=== PATIENT | female | born 1990 | race Caucasian/White ===

== ENCOUNTER → 2018-10-06 12:33 | Outpatient (CLI) | payer SELFPAY ==
[2018-10-06 09:08] VITALS: BMI 28.4
[2018-10-06 16:07] LABS: Chlamydia Trachomatis by PCR Negative (Negative); Neisserai gonorrhoeae by PCR Negative (Negative); Probe Check PASS; Sample Adequacy Control PASS; Specimen Processing Control PASS
== END ==
PROVIDERS: Referring Provider Obstetrics & Gynecology; Visit Provider Obstetrics & Gynecology
DX: Z34.90 Encounter for supervision of normal pregnancy, unspecified, unspecified trimester (principal)
CPT/HCPCS: 87086; 87088; 87491; 87591

== ENCOUNTER → 2018-11-05 10:25 | Outpatient (CLI) | payer SELFPAY ==
[2018-11-05 09:29] VITALS: BMI 28.4
[2018-11-05 11:19] LABS: Absolute Lymphocyte Count 1.26 X10^3/ul (0.83-4.51); Absolute Neutrophil Count 5.9 X10^3/uL (2.0-7.7); Basophil# 0.02 X10^3/uL; Basophil% 0.3 % (0-1); Eosinophil# 0.04 X10^3/uL; Eosinophils% 0.5 % (0-5); Hematocrit 40.5 % (37-47); Hemoglobin 13.9 g/dl (12.0-15.0); Lymphocyte # 1.26 X10^3/ul (4.0); Lymphocyte % 16.2 % (19-41); Mean Corp Hgb Conc 34.3 g/gl (32-36); Mean Corpuscular Hgb 30.4 pg (27.0-32.0); Mean Corpuscular Volume 88.6 fL (81-99); Mean Platelet Vol. 9.1 fl (6.2-12.0); Monocyte# 0.55 X10^3/uL; Monocyte% 7.1 % (0-10); Neutrophil % 75.8 % (47-70); Platelet Count 338 K/mm3 (150-450); RBC Distribution Width CV 13.2 % (11.6-14.6); RBC Distribution Width SD 42.2 fl (35.1-43.9); Red Blood Count 4.57 M/mm3 (4.2-5.4); White Blood Count 7.8 K/mm3 (4.4-11.0)
[2018-11-05 11:21] LABS: POSITIVE COUNT NO; POSITIVE DIFFERENTIAL NO; POSITIVE MORPHOLOGY NO
[2018-11-05 12:30] LABS: HIV - WCH Non-Reactive (Nonreactive); Rubella IgG < 0.2 IU/mL
[2018-11-07 10:02] LABS: HEPATITIS B SURFACE AG Negative (Negative)
[2018-11-12 01:31] LABS: Rapid Plasmin Reagin (RPR) NONREACTIVE (NONREACTIVE)
== END ==
PROVIDERS: Referring Provider Obstetrics & Gynecology; Visit Provider Obstetrics & Gynecology
DX: Z34.81 Encounter for supervision of other normal pregnancy, first trimester (principal)
CPT/HCPCS: 36415; 85025; 86592; 86703; 86762; 86850; 86900; 87340

== ENCOUNTER → 2018-12-20 | Outpatient (CLI) | payer SELFPAY ==
[2018-11-05 09:29] VITALS: BMI 28.4
[2018-12-03 15:07] VITALS: BMI 29.8
--- NOTE | 2018-12-20 08:18 | US_ITS ---
STUDY: SECOND AND THIRD TRIMESTER OBSTETRICAL ULTRASOUND REASON FOR EXAM: Female, 28 years old. Routine survey. LMP: August 06, 2018. TECHNIQUE: Transabdominal TECHNICAL QUALITY: Adequate. PRIOR ULTRASOUND: None. FINDINGS: There is a single intrauterine fetus. The fetus is in a cephalic presentation. There is demonstrated cardiac activity with a heart rate of 144 bpm. There is a normal amniotic fluid volume. The largest amniotic fluid pocket measures 3.0 cm x 2.8 cm. The amniotic fluid index (JUAN RAMON) is within normal limits. The placenta is anterior in location and is not low lying. There are Grade 0 placental changes. The cervix measures 3.9 cm in length. The bilateral adnexal regions are normal. BIOMETRY: BPD: 4.58 cm: 19 weeks, 6 days HC: 17.62 cm: 1 weeks, 1 days AC: 13.91 cm: 19 weeks, 3 days FL: 3.29 cm: 20 weeks, 2 days CI: 75% FL/BPD: 72% FL/HC: FL/AC: 24% HC/AC: 1.27 age by current US: 20 weeks, 0 days. MARGE by current US: May 09, 2019. Estimated weight: 314 grams, +/- 46 grams, 68 %. Age by LMP: 19 weeks, 3 days. MARGE by LMP: May 13, 2019. ANATOMY: Gender: Male Cranium: Normal lateral ventricles. Normal choroid plexus. Normal cerebellum. Normal cisterna magna. Normal face, nose and lips. Chest: Normal 4-chamber heart. Abdomen/Pelvis: Normal diaphragm. Normal stomach. Normal abdominal wall. Normal cord insertion. Normal 3 vessel cord. Normal kidneys. Normal bladder. Spine: Normal cervical spine. Normal thoracic spine. Normal lumbar spine. Normal sacrum. Extremities: Normal bilateral upper extremities. There is evidence of a clubfoot. US/OB Anatomy Scan IMPRESSION: Single live intrauterine gestation with a mean gestational age of 20 weeks. There is evidence of a club foot. Electronically Signed: Jairo Artis, at 11:10 EDT , Service support ,
== END | disposition home or self-care (01) ==
PROVIDERS: Referring Provider Obstetrics & Gynecology; Visit Provider Obstetrics & Gynecology
DX: Z36.89 Encounter for other specified antenatal screening (principal)
CPT/HCPCS: 76805

== ENCOUNTER → 2019-02-01 | Outpatient (CLI) | payer SELFPAY ==
[2019-02-01 10:41] VITALS: BMI 29.8
[2019-02-01 11:18] LABS: Creatinine, Urine (random) < 13.00 mg/dL (NO RANGE EST.); Protein, Urine (Random) < 6.0 mg/dL (<11.9)
== END | disposition home or self-care (01) ==
LOC: LABSPEC 11:01
PROVIDERS: Referring Provider Obstetrics & Gynecology; Visit Provider Obstetrics & Gynecology
DX: O16.9 Unspecified maternal hypertension, unspecified trimester (principal); Z3A.00 Weeks of gestation of pregnancy not specified
CPT/HCPCS: 82570; 84156

== ENCOUNTER → 2019-02-22 | Outpatient (CLI) | payer SELFPAY ==
[2019-02-22 08:19] VITALS: BMI 29.8
[2019-02-22 09:39] LABS: Absolute Lymphocyte Count 1.24 X10^3/ul (0.83-4.51); Absolute Neutrophil Count 8.1 X10^3/uL (2.0-7.7); Basophil# 0.01 X10^3/uL; Basophil% 0.1 % (0-1); Eosinophil# 0.05 X10^3/uL; Eosinophils% 0.5 % (0-5); Hematocrit 38.1 % (37-47); Hemoglobin 12.9 g/dl (12.0-15.0); Lymphocyte # 1.24 X10^3/ul (4.0); Lymphocyte % 12.4 % (19-41); Mean Corp Hgb Conc 33.9 g/gl (32-36); Mean Corpuscular Hgb 30.4 pg (27.0-32.0); Mean Corpuscular Volume 89.6 fL (81-99); Mean Platelet Vol. 8.8 fl (6.2-12.0); Monocyte# 0.62 X10^3/uL; Monocyte% 6.2 % (0-10); Neutrophil # 8.08 X10^3/uL (2.7-7.7); Neutrophil % 80.6 % (47-70); Platelet Count 287 K/mm3 (150-450); RBC Distribution Width CV 13.3 % (11.6-14.6); RBC Distribution Width SD 43.4 fl (35.1-43.9); Red Blood Count 4.25 M/mm3 (4.2-5.4)
[2019-02-22 09:45] LABS: Glucose Challenge Gest 1H 50g 96 mg/dL (70-140)
[2019-02-22 09:47] LABS: POSITIVE COUNT NO; POSITIVE DIFFERENTIAL NO; POSITIVE MORPHOLOGY NO
== END | disposition home or self-care (01) ==
LOC: PAVLAB 08:59
PROVIDERS: Referring Provider Obstetrics & Gynecology; Visit Provider Obstetrics & Gynecology
DX: Z34.93 Encounter for supervision of normal pregnancy, unspecified, third trimester (principal)
CPT/HCPCS: 36415; 82950; 85025

== ENCOUNTER → 2019-04-04 | Outpatient (CLI) | payer SELFPAY ==
[2019-04-04 08:48] VITALS: BMI 29.8
[2019-04-04 09:36] LABS: Creatinine, Urine (random) < 13.00 mg/dL (NO RANGE EST.); Protein, Urine (Random) < 6.0 mg/dL (<11.9)
== END | disposition home or self-care (01) ==
LOC: LABSPEC 09:07
PROVIDERS: Referring Provider Obstetrics & Gynecology; Visit Provider Obstetrics & Gynecology
DX: O16.9 Unspecified maternal hypertension, unspecified trimester (principal); Z3A.00 Weeks of gestation of pregnancy not specified
CPT/HCPCS: 82570; 84156

== ENCOUNTER → 2019-04-20 | Outpatient (CLI) | payer SELFPAY ==
[2019-04-20 08:52] VITALS: BMI 29.8
== END | disposition home or self-care (01) ==
LOC: LAB 15:59
PROVIDERS: Referring Provider Obstetrics & Gynecology; Visit Provider Obstetrics & Gynecology
DX: Z34.93 Encounter for supervision of normal pregnancy, unspecified, third trimester (principal); Z3A.36 36 weeks gestation of pregnancy
CPT/HCPCS: 87081

== ENCOUNTER → 2019-05-04 | Outpatient (CLI) | payer SELFPAY ==
[2019-05-04 09:48] VITALS: BMI 29.8
--- NOTE | 2019-05-04 10:41 | US_ITS ---
STUDY: SECOND AND THIRD TRIMESTER OBSTETRICAL ULTRASOUND REASON FOR EXAM: Female, 28 years old. Small for dates. Check growth. History of club feet. LMP: August 06, 2018 per prior exam. TECHNIQUE: Transabdominal TECHNICAL QUALITY: Adequate. PRIOR ULTRASOUND: OB ultrasound December 20, 2018. FINDINGS: There is a single intrauterine fetus. The fetus is in a cephalic presentation. There is demonstrated cardiac activity with a heart rate of 153 bpm. There is a low normal amniotic fluid volume. The largest amniotic fluid pocket measures 3.5 cm. The amniotic fluid index (JUAN RAMON) is 7.3 cm. The placenta is anterior in location and is not low lying. There are Grade 3 placental changes. The cervix is obscured. The adnexal regions are not visualized. BIOMETRY: BPD: 9.5 cm: 38 weeks, 5 days HC: 35.0 cm: 40 weeks, 6 days AC: 34.1 cm: 38 weeks, 1 days FL: 7.5 cm: 38 weeks, 4 days CI: 80% FL/BPD: 80% FL/AC: 22% HC/AC: 1.03 age by current US: 39 weeks, 1 days. MARGE by current US: May 10, 2019. Estimated weight: 3518 grams, +/- 514 grams, 63 %. age by prior US: 39 weeks, 2 days. MARGE by prior US: May 09, 2019. Age by LMP: 38 weeks, 5 days. MARGE by LMP: May 13, 2019. Hyperflexion and internal rotation of the ankles consistent with bilateral clubfeet again noted. US/OB Limited With Biometrics IMPRESSION: 1. Single living intrauterine fetus in cephalic presentation showing expected interval growth since previous study. 2. Estimated weight is 3518 g. 3. Clubfoot deformity again suggested. 4. Low amniotic fluid volume with an index of 7.3 cm. The largest pocket is 3.5 cm, however. 5. Grade 3 anterior placenta is not low-lying. 6. The cervix is obscured. Electronically Signed: Mahin Cornelius MD at 12:30 EDT , Service support ,
[2019-05-04 15:04] LABS: Creatinine, Urine (random) < 13.00 mg/dL (NO RANGE EST.); Protein, Urine (Random) 12.3 mg/dL (<11.9)
== END | disposition home or self-care (01) ==
PROVIDERS: Referring Provider Obstetrics & Gynecology; Visit Provider Obstetrics & Gynecology
DX: O26.849 Uterine size-date discrepancy, unspecified trimester (principal); O16.3 Unspecified maternal hypertension, third trimester; Z3A.00 Weeks of gestation of pregnancy not specified
CPT/HCPCS: 76816; 82570; 84156

== ENCOUNTER 2019-05-07 17:55 | Inpatient (IN) | payer SELFPAY ==
[2018-10-06 09:08] VITALS: BMI 28.4
[2019-05-05 10:46] VITALS: BMI 29.8
[2019-05-07 17:15] VITALS: BMI 33.7
[2019-05-07] MEDS: Lactated Ringers 1,000 ML 50 ML IV (18:00)
[2019-05-07 18:25] LABS: Absolute Lymphocyte Count 1.48 X10^3/uL (0.83-4.51); Absolute Neutrophil Count 9.4 X10^3/uL (2.0-7.7); Basophil# 0.02 X10^3/uL; Basophil% 0.2 % (0-1); Eosinophil# 0.05 X10^3/uL; Eosinophils% 0.4 % (0-5); Hematocrit 43.3 % (37-47); Hemoglobin 14.7 g/dL (12.0-15.0); Lymphocyte # 1.48 X10^3/ul (4.0); Lymphocyte % 12.6 % (19-41); Mean Corp Hgb Conc 33.9 g/dL (32-36); Mean Corpuscular Hgb 30.6 pg (27.0-32.0); Mean Corpuscular Volume 90.2 fL (81-99); Mean Platelet Vol. 9.7 fl (6.2-12.0); Monocyte# 0.74 X10^3/uL; Monocyte% 6.3 % (0-10); NRBC Flagged by Analyzer 0 % (0-5); Neutrophil # 9.38 X10^3/uL (2.7-7.7); Neutrophil % 80.2 % (47-70); Platelet Count 297 K/mm3 (150-450); RBC Distribution Width CV 12.9 % (11.6-14.6); RBC Distribution Width SD 42.2 fl (35.1-43.9); White Blood Count 11.7 K/mm3 (4.4-11.0)
[2019-05-07 18:38] LABS: AST(SGOT) 18 U/L (15-37); Alanine Aminotransfer ALT/SGPT 22 U/L (13-56); Creatinine, Serum 0.66 mg/dL (0.55-1.02); EST Glomerular Filtration Rate 112 mL/min (>60); Est Glom Filt Rate - Afr Amer 136 mL/min (>60); Estimated Creatinine Clearance 115.21 ml/min; Uric Acid 5.7 mg/dL (2.6-6.0)
[2019-05-07 18:44] LABS: Partial Thromboplast Time 26.6 Seconds (24.1-36.2); Prothrombin Time (Protime)PT. 12.6 SECONDS (11.7-14.9)
[2019-05-07 18:54] VITALS: BP 167/103; PULSE 89; RESP 16; TEMP 36.5; O2SAT 100
[2019-05-07] MEDS: Magnesium Sulfate 4gm/100mL 4 GM/100 ML IV.SOLN. IV (18:54)
[2019-05-07 19:17] LABS: Protein, Urine (Random) 15.3 mg/dL (<11.9); Protein:Creat Ratio 147 mg/g CRE (0-200)
[2019-05-07 19:26] VITALS: BP 128/68; PULSE 91; RESP 16; TEMP 36.6; O2SAT 97
[2019-05-07] MEDS: Magnesium Sulfate 20 GM/500 ML BAG IV (19:26)
[2019-05-07 19:43] VITALS: BP 125/74; PULSE 94; RESP 16; O2SAT 98
[2019-05-07] MEDS: Labetalol 100 MG Tablet PO (20:01)
--- NOTE | 2019-05-07 20:01 | HP.PCM_ITS ---
- Problem List (1) Severe preeclampsia Status: Acute (2) Abnormality, congenital Status: Acute Comment: bilateral club feet noted. fu q4 weeks growth, s/p consult PEDS ORTHO 01/11/19 (3) Rubella non-immune status, antepartum Status: Acute Comment: MMR , avoidance in (4) Supervision of normal Status: Acute Qualifiers: Normal : normal first Trimester: third trimester Qualified Code(s): Z34.03 - Encounter for supervision of normal first , third trimester Comment: PRR MARGE 05/13/2019 Boy. - Adria (5) Status: Acute Qualifiers: Weeks of gestation: 38 weeks Qualified Code(s): Z3A.38 - 38 weeks gestation of Comment: Discused carrier and ntd declined. NIPT low risk. anatomy scan reviewed History Date of Admission: 05/07/19 Final MARGE: 05/13/19 Gestational age: 39 Weeks and 1 Days History of this : This is a 28 year-old, , at 39 weeks gestational age presents IAL. She has had elevated blood pressures upon presentation, has a history of white coat hypertension with all normal bps at home with daily monitoring. 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 Allergies No Known Allergies Allergy (Verified 05/07/19 17:38) Home Medications: Home Medications vitamin#30 30 mg iron-10 mg iron-folic acid 1 mg-omg3 capsule cap PO cap 09/15/18 blood pressure monitor kit See Dose Instructions .ROUTE .MEDSUPPLY #1 ea 12/03/18 Smoking Status: Never smoker Alcohol: None Number of Fetus(es): 1 NST - FHR Rate Baby A Baseline: 140 Variability:: Moderate Accelerations:: 15 x 15 Decelerations:: None NST Reactive:: Yes FHR Category:: Category I Uterine Activity:: q 3-4 History Past Pregnancies: Past Pregnancies Delivery Date Name GA/Weeks Outcome Route Weight Infant Gender Labor Length Anesthesia Delivery Location Provider FOB Labs: Mom's Problem List Problem Status Onset Code Severe preeclampsia Acute O14.10 Mom's Labs & Results 05/07/19 05/07/19 05/07/19 18:05 18:05 18:05 WBC 11.7 H RBC 4.80 Hgb 14.7 Hct 43.3 MCV 90.2 MCH 30.6 MCHC 33.9 RDW Std Deviation 42.2 RDW Coeff of Cy 12.9 Plt Count 297 MPV 9.7 Immature Gran % (Auto) 0.300 Neut % (Auto) 80.2 H Lymph % (Auto) 12.6 L [place] % (Auto) 6.3 Eos % (Auto) 0.4 Baso % (Auto) 0.2 Absolute Neuts (auto) 9.4 H Absolute Lymphs (auto) 1.48 Nucleated RBC % 0 PT 12.6 INR 1.0 APTT 26.6 Creatinine 0.66 Estim Creat Clear Calc 115.21 Est GFR (MDRD) Af Amer 136 Est GFR (MDRD) Non-Af 112 Uric Acid 5.7 AST 18 ALT 22 U Random Total Protein Urine Creatinine Protein/Creatinin Ratio Blood Type Antibody Screen 05/07/19 05/07/19 18:05 18:45 WBC RBC Hgb Hct MCV MCH MCHC RDW Std Deviation RDW Coeff of Cy Plt Count MPV Immature Gran % (Auto) Neut % (Auto) Lymph % (Auto) [place] % (Auto) Eos % (Auto) Baso % (Auto) Absolute Neuts (auto) Absolute Lymphs (auto) Nucleated RBC % PT INR APTT Creatinine Estim Creat Clear Calc Est GFR (MDRD) Af Amer Est GFR (MDRD) Non-Af Uric Acid AST ALT U Random Total Protein 15.3 H Urine Creatinine 104.00 Protein/Creatinin Ratio 147 Blood Type O POSITIVE Antibody Screen NEGATIVE Course Did the patient receive Yes care? Labs Blood Type: O RH: POSITIVE RPR/VDRL/Syphilis Nonreactive Rubella status Non-immune HbSAg Negative Date Done: 11/05/18 Chlamydia Negative Gonorrhea Negative HIV/AIDS Non-Reactive Group B Strep: Negative Current Obstetrical History Gestational Diabetes No Incompetent Cervix No Infertility No IUGR No Macrosomia No Hypertension/Pre-eclampsia Yes Placenta Previa/Abruption No PTL/PROM No Uterine anomaly No Oligohydramnios No Polyhydramnios No Multiple gestation No Past Medical History Asthma No Diabetes No Hypertension No Heart disease No Mitral valve prolapse No Neurologic/Seizure disorder/ No Migraines Kidney disease No Liver disease No Varicosities No Clotting disorders/Hx of DVT No Thyroid Dysfunction No Other medical diseases No Psychiatric disorders No Major trauma No Abnormal PAP smear No Sleep apnea No Mammogram in the last 2 years No Social History Marital Status: Alleged father Adria Huitron Hx Smoking No Smoking Status Never smoker Expected Infant Delivery Method: Spontaneous Vaginal Review of Systems Constitutional: Denies: Fever, Malaise Eyes: Denies: Blurred vision, Vision Change HEENT: Denies: Head Aches, Visual Changes Cardiovascular: Denies: Chest Pain, Palpitations Respiratory: Denies: Cough, Shortness of Breath, Wheezing Gastrointestinal: Denies: Abdominal Pain, Diarrhea, Nausea, Vomiting Genitourinary: Denies: Dysuria, Hematuria Musculoskeletal: Denies: Joint Pain, Muscle pain Skin: Denies: Lesions, Rash Neurological: Denies: Blurred vision, Focal weakness, Headaches Psychiatric: Denies: Anxiety, Depression Endocrine: Denies: Heat/ Cold Intolerance Hematologic/ Lymphatic: Denies: Easy Bruising, Easy Bleeding Physical Exam Vitals: Vital Signs Temp Pulse Resp BP Pulse Ox 97.9 F 91 16 128/68 H 97 05/07/19 19:26 05/07/19 19:26 05/07/19 19:26 05/07/19 19:26 05/07/19 19:26 General: Alert, Cooperative, No apparent distress HEENT: Atraumatic, Normocephalic. Negative for: Thyromegaly, Lymphadenopathy Cardiovascular: Regular rate Lungs: Normal air movement Abdomen: Soft, Non Tender, Gravid Neurological: Deep Tendon Reflexes 2+/4 and Symmetrical, Neuro grossly intact. Negative for: Clonus HEALTHC[employer] MANAGEMENT CONSULTANT: Normal external genitalia. Negative for: Vulvar lesions Estimated gestational size: Appropriate for gestational size Presentation: Cephalic Cervix Dilation (cm): 3 Assessment/Plan All Active Problems (Last Reviewed 05/04/19 @ 09:47 by Juanita Bach) Severe preeclampsia (Acute) White coat syndrome with high blood pressure but without hypertension (Acute) Abnormality, congenital (Acute) Rubella non-immune status, antepartum (Acute) Supervision of normal (Acute) (Acute) Elevated blood pressure affecting , antepartum (Resolved) This is a 28 year-old, at 39 weeks gestational age presents IAL. Patient presents IOL, plan management for , pitocin/AROM when able. Pain management: plans epidural. GBS negative. Management of any complications: Elevated blood pressures normal labs negative proteinuria patient given 1 dose of IV labetalol and started on ma gnesium. I have reviewed the [facility] and made any clinically relevant updates.
[2019-05-07 20:03] VITALS: BP 135/83; PULSE 81; RESP 16; O2SAT 98
[2019-05-07 20:30] VITALS: BP 143/87; PULSE 88; RESP 16; TEMP 36.6; O2SAT 97
[2019-05-07] MEDS: Lactated Ringers 500 ML 999 ML IV ×2 (20:46→21:40)
--- NOTE | 2019-05-07 22:11 | PN_ITS ---
Progress Note Patient taken to the back for heart rate deceleration. Patient had a 6- minute bradycardia down into the 50s. Patient's blood pressure had dropped during this time span and when she recovered in the back with a normal blood pressure baby's heart rate was reassuring and with a baseline of 140s with moderate variability. Patient's water was broken for clear fluid and scalp electrode was placed. Patient is 4/90/-1. Due to low blood pressures magnesium sulfate was turned off. Will restart magnesium if blood pressures begin to go back up.
[2019-05-07] MEDS: Lactated Ringers 1,000 ML 200 ML IV (22:37)
[2019-05-07] MEDS: fentaNYL-bupivacaine (epidural) 100 ML BAG EPIDURAL (23:03)
[2019-05-08] VITALS (7 sets, daily range): BP systolic 129–152; BP diastolic 85–93; PULSE 94–105; RESP 14–18; TEMP 36.8–37.1
[2019-05-08] MEDS: Lactated Ringers 1,000 ML 200 ML IV (03:10)
[2019-05-08] MEDS: fentaNYL-bupivacaine (epidural) 100 ML BAG EPIDURAL (03:55)
[2019-05-08] MEDS: Oxytocin 30 units/NS 500 ml 30 UNITS/500 ML IV.SOLN 334 UNITS IV (04:48)
--- NOTE | 2019-05-08 05:14 | PCM.OPRPT ---
Problem List (1) Severe preeclampsia Status: Acute (2) Abnormality, congenital Status: Acute Comment: bilateral club feet noted. fu q4 weeks growth, s/p consult PEDS ORTHO 01/11/19 (3) Rubella non-immune status, antepartum Status: Acute Comment: MMR , avoidance in (4) Supervision of normal Status: Acute Qualifiers: Normal : normal first Trimester: third trimester Qualified Code(s): Z34.03 - Encounter for supervision of normal first , third trimester Comment: PRR MARGE 05/13/2019 Boy. - Adria (5) Status: Acute Qualifiers: Weeks of gestation: 38 weeks Qualified Code(s): Z3A.38 - 38 weeks gestation of Comment: Discused carrier and ntd declined. NIPT low risk. anatomy scan reviewed Vaginal Delivery Maternal Presentation: Active Labor ial 39 weeks elevated bps Medical Reason for Induction: Gestational Hypertension Amniotic Membrane Rupture Type: Artificial Amniotic Fluid Description: Clear Final MARGE: 05/13/19 Gestational age: 39 Weeks and 2 Days Date of Procedure: 05/08/19 Pre-Operative Diagnosis: ial ghtn Post-Operative Diagnosis: same Surgery/ Procedure Performed: Spontaneous Vaginal Delivery, - - currettage Type of Anesthesia: Epidural Description of Procedure: Patient began pushing and delivered the head in the PAM presentation. The head was delivered atraumatically and a loose cord x1 was identified and easily reduced over the infant's head. The anterior and posterior shoulders delivered without complication followed by the rest of the and the infant was placed on the maternal abdomen. Delayed cord clamping was employed for approximately 60 seconds. Cord was clamped and cut and gentle traction was applied to the cord and the placenta delivered spontaneously immediately following it was noted to starting to tear into due to the thin small nature and thickness of the placenta with three-vessel cord. Retained membranes were noted to be present and therefore curettage was performed with a sharp curette making several passes to remove retained membranes which were removed without complication. Ultrasound confirmed no additional suspicion for retained membranes and there were no further complications. The perineum and vagina were inspected and noted to have a second-degree perineal laceration was repaired in the usual fashion with 3-0 Vicryl repeat.. EBL was 300 cc. Patient and infant tolerated delivery well. Presentation: PAM Placental Delivery Description: Spontaneous, Retained Placenta Disposition: [facility] Cord Vessel Description: 3 Vessels Cord Entanglement: Around neck x 1, loose Drain: Taylor to straight drain Estimated Blood Loss: 300 A gender: Male Episiotomy Description: None Laceration: Perineal Extension/lac, 2nd degree Medications given after delivery: IV Pitocin Complications: - - retained membranes Multi Select Codes - Urinary/Genital Urinary/Genital CPT Codes: 18130 Vaginal Delivery global pkg, Other Procedure See Report - [id number] curettage
[2019-05-08 07:14] LABS: ALB/GLOB Ratio 0.7 RATIO (0.9-2.4); AST(SGOT) 20 U/L (15-37); Alanine Aminotransfer ALT/SGPT 18 U/L (13-56); Albumin, Serum 2.4 g/dL (3.2-5.0); Alkaline Phosphatase 131 U/L (45-117); Anion Gap 8 (5-15); BUN 8 mg/dL (7-18); Calcium,Total 7.5 mg/dL (8.5-10.1); Chloride 109 mmol/L (98-107); Creatinine, Serum 0.57 mg/dL (0.55-1.02); EST Glomerular Filtration Rate 134 mL/min (>60); Est Glom Filt Rate - Afr Amer 162 mL/min (>60); Globulin 3.4 g/dL (2.2-4.2); Glucose 103 mg/dL (74-106); Potassium 3.8 mmol/L (3.5-5.1); Protein, Total 5.8 g/dL (6.4-8.2); Sodium Level 139 mmol/L (136-145)
[2019-05-08 07:23] LABS: Hematocrit 36.1 % (37-47); Hemoglobin 12.3 g/dL (12.0-15.0); Mean Corp Hgb Conc 34.1 g/dL (32-36); Mean Corpuscular Hgb 30.8 pg (27.0-32.0); Mean Corpuscular Volume 90.3 fL (81-99); Mean Platelet Vol. 9.5 fl (6.2-12.0); Platelet Count 254 K/mm3 (150-450); RBC Distribution Width CV 13.1 % (11.6-14.6); RBC Distribution Width SD 43.3 fl (35.1-43.9); White Blood Count 17.7 K/mm3 (4.4-11.0)
[2019-05-08] MEDS: Naproxen 250 MG Tablet 500 MG PO (09:59)
[2019-05-08] MEDS: Labetalol 100 MG Tablet PO (21:58)
[2019-05-09] VITALS (10 sets, daily range): BP systolic 121–163; BP diastolic 80–101; PULSE 88–107; RESP 16–18; TEMP 36.4–36.9; O2SAT 97–99
--- NOTE | 2019-05-09 08:23 | PCM.PN.OB ---
Patient Problems: Active and Suspected Problems (Last Reviewed 05/04/19 @ 09:47 by Juanita Bach) Severe preeclampsia (Acute) Subjective: doing well no complaints pain controlled no CP SOB N V ambulating well tolerating po lochia moderate, going well - Physical Exam General: Alert, Oriented x3 Vital Signs Temp Pulse Resp BP Pulse Ox 97.8 F 88 16 151/88 H 99 05/09/19 08:16 05/09/19 08:16 05/09/19 08:16 05/09/19 08:16 05/09/19 08:16 Oxygen Delivery Method Room Air Weight: 202 lb 9.6 oz Body Mass Index (BMI) 33.7 Intake and Output for Last 24 Hours 05/07/19 05/08/19 05/09/19 23:59 23:59 23:59 Intake Total 1519.18 / 1519.18 2436.67 / 2436.67 Output Total 300 / 300 3350 / 3350 Balance 1219.18 / 1219.18 -913.33 / -913.33 Medical Necessity - Tobacco Use Smoking Status: Never smoker Assessment/Plan All Active Problems (Last Reviewed 05/04/19 @ 09:47 by Juanita Bach) Severe preeclampsia (Acute) White coat syndrome with high blood pressure but without hypertension (Acute) Abnormality, congenital (Acute) Rubella non-immune status, antepartum (Acute) Supervision of normal (Acute) (Acute) Elevated blood pressure affecting , antepartum (Resolved)
--- NOTE | 2019-05-09 08:25 | DCINST_ITS ---
Discharge Diet: No Restrictions Discharge Activity: Return to Normal Activity, May not drive while taking narcotic pain medications., May Shower May resume sexual activity in: 4-6 weeks Call your doctor if your incision/area has: Continuous Slow Oozing, Sudden Increased Bleeding, Increased Pain/ Swelling, Increased Redness, Foul Smelling Discharge Additional Instructions: If you experience any of the following, contact your healthcare provider. * Bleeding that soaks a pad every hour for 2 hours * Fever 100.4 or higher * Unrelieved incision or abdominal pain * Swelling, redness, discharge or bleeding from your incision or episiotomy site * Your incision begins to separate * Problems urinating (including inability to urinate or burning while urinating). * Visual changes * Severe headache * Flu-like symptoms * Pain or redness in one of both of your breasts * Pain, warmth, tenderness or swelling in your legs, especially the calf area * Frequent nausea and vomiting * Symptoms of depression or anxiety If you experience any of the following, call 911 or go to the nearest Emergency Room. * Chest pain * Problems breathing * Seizure activity * Partial or complete paralysis of a body part, slurred speech, weakness or drooping of the face, or a sudden inability to walk or hold your balance Allergies/Adverse Reactions: Allergies No Known Allergies Allergy (Verified 05/07/19 17:38) Medications to take at Discharge vitamin#30 30 mg iron-10 mg iron-folic acid 1 mg-omg3 capsule cap PO cap 09/15/18 blood pressure monitor kit See Dose Instructions .ROUTE .MEDSUPPLY #1 ea 12/03/18 Labetalol [Trandate (Beta Reid)] 100 mg PO BID #60 tab 05/09/19 Naproxen [Naprosyn] 250 - 500 mg PO Q8H PRN PRN #30 tab 05/09/19 The following prescriptions were given: Naproxen [Naprosyn] 250 - 500 mg PO Q8H PRN PRN #30 tab PRN Reason: MILD PAIN [facility]: [id number] Labetalol [Trandate (Beta Reid)] 100 mg PO BID #60 tab Transmission Status: [id number] Please Follow Up With: Coral Church MD - [phone] When: Call to make an appointment with your doctor in 6 weeks. If you had elevated Blood pressure or 4th degree laceration you will need to be seen in 2 weeks. Primary Care Physician: Care Physician,No Primary [Primary Care Provider] - Test Results: Test results from this visit will be discussed in further detail at your follow- up appointment, if applicable.
[2019-05-09] MEDS: Labetalol 100 MG Tablet PO ×2 (10:02→20:45)
[2019-05-10 03:35] VITALS: BP 131/90; PULSE 86; RESP 17; TEMP 36.7; O2SAT 98
[2019-05-10 07:54] VITALS: BP 136/74; PULSE 79; RESP 18; TEMP 36.6; O2SAT 97
--- NOTE | 2019-05-10 08:59 | PCM.PN.OB ---
Patient Problems: Active and Suspected Problems (Last Reviewed 05/04/19 @ 09:47 by Juanita Bach) Severe preeclampsia (Acute) Subjective: doing well no complaints pain controlled. no CP SOB N V. No headache, vision changes. Borderline elevated BP in night. ambulating well tolerating po lochia moderate, going well - Physical Exam General: Oriented x3 Abdomen: Soft, Non Tender, Non-Distended, - - FF below U Vital Signs Temp Pulse Resp BP Pulse Ox 98 F 79 18 136/74 H 97 05/10/19 07:54 05/10/19 07:54 05/10/19 07:54 05/10/19 07:54 05/10/19 07:54 Oxygen Delivery Method Room Air Weight: 202 lb 9.6 oz Body Mass Index (BMI) 33.7 Intake and Output for Last 24 Hours 05/08/19 05/09/19 05/10/19 23:59 23:59 23:59 Intake Total 2436.67 / 2436.67 Output Total 3350 / 3350 Balance -913.33 / -913.33 Medical Necessity - Tobacco Use Smoking Status: Never smoker Assessment/Plan All Active Problems (Last Reviewed 05/04/19 @ 09:47 by Juanita Bach) Severe preeclampsia (Acute) White coat syndrome with high blood pressure but without hypertension (Acute) Abnormality, congenital (Acute) Rubella non-immune status, antepartum (Acute) Supervision of normal (Acute) (Acute) Elevated blood pressure affecting , antepartum (Resolved) s/p PPD # 2 1. routine post delivery care 2. breast feeding- support given 3. rh positive 4. rubella immune 5. Most recent BP WNL. Will monitor at home and call if >140/90 X 2 readings 6. Home today 7. BP check in office 1 week and also 6 wk pp visit
[2019-05-10 10:02] VITALS: BP 147/82; PULSE 92
[2019-05-10] MEDS: Labetalol 100 MG Tablet PO (10:04)
--- NOTE | 2019-05-10 10:26 | NURSING ---
Patient refused MMR vaccine, education given.
== END 2019-05-10 10:45 | disposition home or self-care (01) | DRG 807 ==
LOC: WPOUT 17:58
PROVIDERS: Admitting Provider Obstetrics & Gynecology; Referring Provider Obstetrics & Gynecology; Visit Provider Obstetrics & Gynecology
DX: O14.14 Severe pre-eclampsia complicating childbirth (principal); Z37.0 Single live birth; O76 Abnormality in fetal heart rate and rhythm complicating labor and delivery; O77.1 Fetal stress in labor or delivery due to drug administration; O69.81X0 Labor and delivery complicated by cord around neck, without compression, not applicable or unspecified; O70.1 Second degree perineal laceration during delivery; O72.2 Delayed and secondary postpartum hemorrhage; Z3A.39 39 weeks gestation of pregnancy
CPT/HCPCS: 59050; 76815; 80053; 82565; 82570; 84156; 84450; 84460; 84550; 85025; 85027; 85610; 85730; 86850; 86900; 86901; 99218; J7120; G0378

== ENCOUNTER → 2019-06-20 | Outpatient (CLI) | payer SELFPAY ==
[2019-06-20 14:54] VITALS: BMI 33.7
[2019-06-23 16:56] LABS: HPV Reflexed? NOT INDICATED
== END | disposition home or self-care (01) ==
PROVIDERS: Referring Provider Obstetrics & Gynecology; Visit Provider Obstetrics & Gynecology
DX: Z12.4 Encounter for screening for malignant neoplasm of cervix (principal)
CPT/HCPCS: 88175; G0145

== ENCOUNTER → 2021-07-01 11:26 | Outpatient (CLI) | payer SELFPAY ==
[2021-07-01 12:08] LABS: T4 Free Direct 1.05 ng/dL (0.76-1.46); Thyroid Stim Hormone (TSH) 1.86 uIU/mL (0.358-3.74)
== END ==
PROVIDERS: Referring Provider Obstetrics & Gynecology; Visit Provider Obstetrics & Gynecology
DX: E01.0 Iodine-deficiency related diffuse (endemic) goiter (principal)
CPT/HCPCS: 36415; 84439; 84443

== ENCOUNTER → 2021-07-11 09:39 | Outpatient (CLI) | payer SELFPAY ==
--- NOTE | 2021-07-11 09:43 | US_ITS ---
STUDY: THYROID ULTRASOUND REASON FOR EXAM: Female, 31 years old. Thyromegaly. TECHNIQUE: Ultrasound evaluation of the thyroid was performed with real-time and static kirby-scale imaging. COMPARISON: None. FINDINGS: RIGHT LOBE: The right lobe of the thyroid gland measures 4.9 cm x 1.4 cm x 1.3 cm. There is a heterogeneous echotexture. There is a 1 cm x 1 cm x 0.9 cm hypoechoic solid nodule in the anterior aspect of the midpole of the right lobe. Intranodular vascularity is seen. LEFT LOBE: The left lobe of the thyroid gland measures 4.8 cm x 1.6 cm x 1.1 cm. There is a heterogeneous echotexture. 31.3 cm x 1.1 cm x 1.1 cm echogenic nodule in the lower pole of the left lobe. Intranodular vascularity is seen. ISTHMUS: The isthmus measures 2 mm. The regional lymph nodes are normal. US/Thyroid IMPRESSION: Heterogeneous appearance of both lobes of the thyroid gland. 1.3 cm x 1.1 cm x 1.1 cm echogenic nodule in the lower pole of the left lobe. 1 cm x 1 cm x 0.9 cm nodule in the anterior midportion of the right lobe. Correlation with nuclear medicine thyroid scan and uptake is recommended. Electronically Signed: Jairo Artis MD at 15:54 EDT , Service support ,
== END ==
PROVIDERS: PCP Family Medicine; Referring Provider Obstetrics & Gynecology; Visit Provider Obstetrics & Gynecology
DX: E01.0 Iodine-deficiency related diffuse (endemic) goiter (principal)
CPT/HCPCS: 76536

== ENCOUNTER 2021-10-24 14:53 | Outpatient (CLI) | payer SELFPAY ==
[2021-10-24 15:17] LABS: Absolute Lymphocyte Count 1.39 X10^3/uL (0.83-4.51); Absolute Neutrophil Count 9.2 X10^3/uL (2.0-7.7); Eosinophil# 0.04 X10^3/uL; Eosinophils% 0.4 % (0-5); Hematocrit 38.2 % (37-47); Lymphocyte # 1.39 X10^3/ul (0.83-4.51); Lymphocyte % 12.4 % (19-41); Mean Corpuscular Hgb 29.8 pg (27.0-32.0); Mean Corpuscular Volume 87.6 fL (81-99); Mean Platelet Vol. 8.7 fl (6.2-12.0); Monocyte# 0.54 X10^3/uL; Monocyte% 4.8 % (0-10); NRBC Flagged by Analyzer 0 % (0-5); Neutrophil # 9.15 X10^3/uL (2.7-7.7); Platelet Count 359 K/mm3 (150-450); RBC Distribution Width CV 13.1 % (11.6-14.6); RBC Distribution Width SD 42.5 fl (35.1-43.9); Red Blood Count 4.36 M/mm3 (4.2-5.4); White Blood Count 11.2 K/mm3 (4.4-11.0)
[2021-10-24 16:05] LABS: Protein, Urine (Random) 8.3 mg/dL (<11.9); Protein:Creat Ratio 66 mg/g CRE (0-200)
[2021-10-24 16:11] LABS: ALB/GLOB Ratio 0.9 RATIO (0.9-2.4); AST(SGOT) 14 U/L (15-37); Alanine Aminotransfer ALT/SGPT 21 U/L (13-56); Albumin, Serum 3.5 g/dL (3.2-5.0); Alkaline Phosphatase 73 U/L (45-117); Anion Gap 5 (5-15); BUN 10 mg/dL (7-18); BUN/Creat Ratio 18.2 RATIO (10-20); Calcium,Total 8.5 mg/dL (8.5-10.1); Chloride 105 mmol/L (98-107); Creatinine, Serum 0.55 mg/dL (0.55-1.02); EST Glomerular Filtration Rate 138 mL/min (>60); Est Glom Filt Rate - Afr Amer 167 mL/min (>60); Globulin 3.9 g/dL (2.2-4.2); Glucose 131 mg/dL (74-106); Glucose Challenge Gest 1H 50g 131 mg/dL (70-140); Potassium 3.2 mmol/L (3.5-5.1); Protein, Total 7.4 g/dL (6.4-8.2); Sodium Level 135 mmol/L (136-145)
[2021-10-25 08:10] LABS: Rubella IgG Non-Reactive (Nonreactive)
[2021-11-01 11:56] LABS: HPV APTIMA, High Risk Negative (Negative)
== END 2021-10-24 23:59 | disposition home or self-care (01) ==
LOC: PAVLAB 14:53
PROVIDERS: PCP Family Medicine; Referring Provider Obstetrics & Gynecology; Visit Provider Obstetrics & Gynecology
DX: O09.90 Supervision of high risk pregnancy, unspecified, unspecified trimester (principal); Z3A.00 Weeks of gestation of pregnancy not specified
CPT/HCPCS: 36415; 80053; 82570; 82950; 84156; 85025; 86762; 86850; 86900; 86901; 87086; 87088; 87624; 88175; G0145

== ENCOUNTER 2021-11-07 09:53 | Outpatient (CLI) | payer SELFPAY ==
[2021-11-07 11:07] LABS: NATERA MAILED SPECIMEN
[2021-11-07 11:15] LABS: Anion Gap 4 (5-15); BUN 10 mg/dL (7-18); BUN/Creat Ratio 21.2 RATIO (10-20); Calcium,Total 8.9 mg/dL (8.5-10.1); Chloride 106 mmol/L (98-107); Creatinine, Serum 0.47 mg/dL (0.55-1.02); EST Glomerular Filtration Rate 164 mL/min (>60); Est Glom Filt Rate - Afr Amer 199 mL/min (>60); Glucose 94 mg/dL (74-106); Potassium 3.8 mmol/L (3.5-5.1); Sodium Level 136 mmol/L (136-145)
== END 2021-11-07 23:59 | disposition home or self-care (01) ==
LOC: PAVLAB 09:54
PROVIDERS: PCP Family Medicine; Referring Provider Obstetrics & Gynecology; Visit Provider Obstetrics & Gynecology
DX: E87.6 Hypokalemia (principal)
CPT/HCPCS: 36415; 80048

== ENCOUNTER 2021-11-22 14:25 | Outpatient (CLI) | payer SELFPAY ==
[2021-11-22 15:36] LABS: NATERA MAILED SPECIMEN
== END 2021-11-22 23:59 | disposition home or self-care (01) ==
LOC: LAB 14:26
PROVIDERS: PCP Family Medicine; Visit Provider Obstetrics & Gynecology
DX: Z34.81 Encounter for supervision of other normal pregnancy, first trimester (principal)
CPT/HCPCS: 36415

== ENCOUNTER → 2022-01-17 | Outpatient (CLI) | payer SELFPAY ==
[2022-01-17 13:56] LABS: Protein, Urine (Random) < 6.0 mg/dL (<11.9)
== END | disposition home or self-care (01) ==
LOC: LABSPEC 13:26
PROVIDERS: PCP Family Medicine; Visit Provider Obstetrics & Gynecology
DX: I10 Essential (primary) hypertension (principal)
CPT/HCPCS: 82570; 84156

== ENCOUNTER → 2022-03-14 | Outpatient (CLI) | payer MEDICAID, SELFPAY ==
[2022-03-14 17:08] LABS: Absolute Lymphocyte Count 1.13 X10^3/uL (0.83-4.51); Absolute Neutrophil Count 6.9 X10^3/uL (2.0-7.7); Basophil# 0.01 X10^3/uL; Basophil% 0.1 % (0-1); Eosinophil# 0.04 X10^3/uL; Eosinophils% 0.5 % (0-5); Hematocrit 34.4 % (37-47); Hemoglobin 12.1 g/dL (12.0-15.0); Lymphocyte # 1.13 X10^3/ul (0.83-4.51); Lymphocyte % 13.4 % (19-41); Mean Corp Hgb Conc 35.2 g/dL (32-36); Mean Corpuscular Hgb 30.6 pg (27.0-32.0); Mean Corpuscular Volume 86.9 fL (81-99); Mean Platelet Vol. 9.1 fl (6.2-12.0); Monocyte# 0.38 X10^3/uL; Monocyte% 4.5 % (0-10); NRBC Flagged by Analyzer 0 % (0-5); Neutrophil # 6.86 X10^3/uL (2.7-7.7); Neutrophil % 81.1 % (47-70); Platelet Count 309 K/mm3 (150-450); RBC Distribution Width CV 13.4 % (11.6-14.6); RBC Distribution Width SD 42.8 fl (35.1-43.9); Red Blood Count 3.96 M/mm3 (4.2-5.4); White Blood Count 8.5 K/mm3 (4.4-11.0)
[2022-03-14 17:47] LABS: Glucose Challenge Gest 1H 50g 134 mg/dL (70-140)
== END | disposition home or self-care (01) ==
PROVIDERS: Obstetrics & Gynecology; PCP Family Medicine; Referring Provider Obstetrics & Gynecology; Visit Provider Obstetrics & Gynecology
DX: O09.90 Supervision of high risk pregnancy, unspecified, unspecified trimester (principal); Z3A.00 Weeks of gestation of pregnancy not specified
CPT/HCPCS: 36415; 82950; 85025

== ENCOUNTER → 2022-04-25 | Outpatient (CLI) | payer MEDICAID, SELFPAY ==
[2022-04-25 14:32] LABS: Hematocrit 38.5 % (37-47); Hemoglobin 13.4 g/dL (12.0-15.0); Mean Corp Hgb Conc 34.8 g/dL (32-36); Mean Corpuscular Hgb 30.9 pg (27.0-32.0); Mean Corpuscular Volume 88.9 fL (81-99); Mean Platelet Vol. 9.5 fl (6.2-12.0); Platelet Count 253 K/mm3 (150-450); RBC Distribution Width CV 13.4 % (11.6-14.6); RBC Distribution Width SD 43.9 fl (35.1-43.9); Red Blood Count 4.33 M/mm3 (4.2-5.4); White Blood Count 7.9 K/mm3 (4.4-11.0)
[2022-04-25 14:41] LABS: Protein, Urine (Random) < 6.0 mg/dL (<11.9)
[2022-04-25 15:02] LABS: ALB/GLOB Ratio 0.7 RATIO (0.9-2.4); AST(SGOT) 19 U/L (15-37); Alanine Aminotransfer ALT/SGPT 19 U/L (13-56); Albumin, Serum 2.7 g/dL (3.2-5.0); Alkaline Phosphatase 141 U/L (45-117); Anion Gap 7 (5-15); BUN 9 mg/dL (7-18); BUN/Creat Ratio 16.5 RATIO (10-20); Calcium,Total 8.4 mg/dL (8.5-10.1); Chloride 108 mmol/L (98-107); Creatinine, Serum 0.54 mg/dL (0.55-1.02); EST Glomerular Filtration Rate 139 mL/min (>60); Est Glom Filt Rate - Afr Amer 168 mL/min (>60); Globulin 3.8 g/dL (2.2-4.2); Glucose 79 mg/dL (74-106); Potassium 3.6 mmol/L (3.5-5.1); Protein, Total 6.5 g/dL (6.4-8.2); Sodium Level 138 mmol/L (136-145)
== END | disposition home or self-care (01) ==
PROVIDERS: PCP Family Medicine; Referring Provider Obstetrics & Gynecology; Visit Provider Obstetrics & Gynecology
DX: O10.919 Unspecified pre-existing hypertension complicating pregnancy, unspecified trimester (principal)
CPT/HCPCS: 36415; 80053; 82570; 84156; 85027

== ENCOUNTER 2022-05-01 10:25 | Inpatient (IN) | payer MEDICAID, SELFPAY ==
[2022-05-01] VITALS (20 sets, daily range): BP systolic 141–178; BP diastolic 83–98; PULSE 71–96; TEMP 36.5–37; O2SAT 97–99; BMI 38.1
[2022-05-01 11:51] LABS: Absolute Lymphocyte Count 1.33 X10^3/uL (0.83-4.51); Absolute Neutrophil Count 6.4 X10^3/uL (2.0-7.7); Basophil# 0.02 X10^3/uL; Basophil% 0.2 % (0-1); Eosinophil# 0.02 X10^3/uL; Eosinophils% 0.2 % (0-5); Hemoglobin 13.5 g/dL (12.0-15.0); Lymphocyte # 1.33 X10^3/ul (0.83-4.51); Lymphocyte % 16.2 % (19-41); Mean Corp Hgb Conc 34.6 g/dL (32-36); Mean Corpuscular Hgb 30.7 pg (27.0-32.0); Mean Corpuscular Volume 88.6 fL (81-99); Mean Platelet Vol. 9.9 fl (6.2-12.0); Monocyte# 0.43 X10^3/uL; Monocyte% 5.2 % (0-10); NRBC Flagged by Analyzer 0 % (0-5); Neutrophil # 6.39 X10^3/uL (2.7-7.7); Platelet Count 243 K/mm3 (150-450); RBC Distribution Width CV 13.4 % (11.6-14.6); RBC Distribution Width SD 43.9 fl (35.1-43.9); White Blood Count 8.2 K/mm3 (4.4-11.0)
[2022-05-01] MEDS: Betamethasone/Betamethasone 30 MG/5 ML Vial 12 MG IM (12:07)
[2022-05-01 12:34] LABS: AST(SGOT) 18 U/L (15-37); Alanine Aminotransfer ALT/SGPT 16 U/L (13-56); Creatinine, Serum 0.48 mg/dL (0.55-1.02); EST Glomerular Filtration Rate 160 mL/min (>60); Est Glom Filt Rate - Afr Amer 194 mL/min (>60); Estimated Creatinine Clearance 154.21 ml/min; Uric Acid 6.1 mg/dL (2.6-6.0)
[2022-05-01 12:45] LABS: Protein, Urine (Random) < 6.0 mg/dL (<11.9)
[2022-05-01 15:46] LABS: Amphetamine Urine VISTA NEGATIVE (<1000 ng/mL); Barbiturate Urine VISTA NEGATIVE (< 200 ng/mL); Benzodiazepine Urine VISTA NEGATIVE (< 200 ng/mL); Cocaine Urine VISTA NEGATIVE (< 300 ng/mL); Ecstacy Urine VISTA NEGATIVE (< 500 ng/mL); Methadone Urine VISTA NEGATIVE (< 300 ng/mL); PCP Urine VISTA NEGATIVE (< 25 ng/mL); THC Urine VISTA NEGATIVE (< 50 ng/mL); Vista UDS pH Range 5
[2022-05-01 15:47] LABS: Syphilis Antibodies Non-reactive
[2022-05-01 16:02] LABS: HIV - WCH Non-Reactive (Nonreactive); Hepatitis B Surface Antigen Non-Reactive (Nonreactive); Hepatitis C Antibody Non-Reactive (Nonreactive)
[2022-05-01 16:39] LABS: Group B Strep DNA By PCR Negative (Negative); Internal Control PASS; Probe Check PASS; Specimen Processing Control PASS
--- NOTE | 2022-05-01 17:14 | HP.PCM.OB_ITS ---
HPI - General General Date of Admission: 05/01/22 HPI Narrative TITA PIERRE, is a 31 F who presents with IUGR baby A and gestational hypertension. Blood pressures are in the mildly elevated range to 140s to 150s over 90s to low 100s. Patient denies any headache or blurry vision. Maternal Data Information MARGE Calculator Estimated Delivery Date Method Current WG Current Estimate 06/02/22 LMP (Certain) 35w 4d # 2 PFSH PFSH Medical History (Updated 05/02/22 @ 20:[address] Coral Church MD) Dairy product intolerance Dichorionic diamniotic twin gestation (~11/07/21) Low blood potassium Pre-eclampsia Superficial varicosities Thyromegaly White coat syndrome with high blood pressure without hypertension Home Medications prenat.vits,iraj,[id number] 1 tab PO DAILY 10/15/21 [History Last Taken 04/30/22 18:00] nifedipine 30 mg tablet,extended release 24 hr (Procardia XL) 30 mg PO DAILY blood pressure 05/01/22 [History Last Taken 04/30/22 18:00] Allergy/AdvReac Type Severity Reaction Status Date / Time No Known Allergies Allergy Verified 05/01/22 09:02 Family History Father Hypertension CVA (cerebral vascular accident) Mother Uterine cancer Bennett syndrome Social History adopted: No household members: spouse and children housing: house number of children: 1 current occupational status: employed current occupation: [employer] current occupational exposures/hazards: No pets and animals: No history of recent travel: No Smoking Status: Never smoker alcohol intake: never substance use type: does not use caffeine: No what type of physical activity do you participate in: none seatbelt use: always do you feel safe at home: Yes additional social history: [place] History 2 Elective abortions Hx Para 1 Spontaneous abortions Hx # Term Pregnancies Ectopic pregnancies Hx # Pregnancies Multiple births # of living children 1 Past Pregnancies Del. Date Name GA/Weeks Outcome Route Bth Weight Infant Gen Labor Lgth Anesthesia Del Locatn Provider FOB 05/08/19 Mack 39 live - full term Male epidur al [facility] Delivery Date: 05/08/19 Last Updated by: Jenna Giacomo retained membranes; 2 degree laceration; severe GHTN; bilateral clubbed feet Visit Details Expected Delivery Route/Plan if vtx vtx Labor Preferences- CB/BF classes: [] labor support person: [] labor intervention preferences: [] pain management options preferred: [] cut cord/dad catch: [] : [] PP control planned: [] discussed possible routes of delivery and associated risks: [] special requests: [] Plans Covid status: declined Flu vaccine: declined Tdap vaccine: declined Rhogam: na LARC form signed: [] movement and labor precautions reviewed. Problem list reviewed and updated with the most current plan of care details and appropriate orders placed. Relevant counseling for the gestational age provided. Continue routine care and follow up unless otherwise noted in visit notes/problem list details OB Flowsheet Initial Weight: 209 lb Date -?-?-?-?-?-?-?-?-?-?-?-?- EGA Weight BP Urine Prot -?-?-?-?-?-?-?-?-?-?-?-?- Glucose FHR FuHt Pres Dilation -?-?-?-?-?-?-?-?-?-?-?-?- Effaced St Visit Note 10/24/21 -?-?-?-?-?-?-?-?-?-?-?-?- 8w 3d 209 lb (+0 oz) 135/86 -?-?-?-?-?-?-?-?-?-?-?-?- A 170 -?-?-?-?-?-?-?-?-?-?-?-?- B 165 A -?-?-?-?-?-?-?-?-?-?-?-?- B -?-?-?-?-?-?-?-?-?-?-?-?- A -?-?-?-?-?-?-?-?-?-?-?-?- B A SM- CRL cons wit h LMP two GS sac seen with thick dividing membrane -?-?-?-?-?-?-?-?-?-?-?-?- B 03/03/22 -?-?-?-?-?-?-?-?-?-?-?-?- 10w 3d 149/94 Negative -?-?-?-?-?-?-?-?-?-?-?-?- Negative A 160 -?-?-?-?-?-?-?-?-?-?-?-?- B 163 A -?-?-?-?-?-?-?-?-?-?-?-?- B -?-?-?-?-?-?-?-?-?-?-?-?- A -?-?-?-?-?-?-?-?-?-?-?-?- B A JV- bp higher to day, pt states it is white coat syndrome. will need to start baby asa. rto in 2 weeks with home bp cuff. if elevated on 2 separate visits will be considered chronic htn and may or may not need medication -?-?-?-?-?-?-?-?-?-?-?-?- B 11/22/21 -?-?-?-?-?-?-?-?-?-?-?-?- 12w 4d 209 lb (+0 oz) 209 lb (+0 oz) 139/88 Negative -?-?-?-?-?-?-?-?-?-?-?-?- Negative A 153 -?-?-?-?-?-?-?-?-?-?-?-?- B 150 A -?-?-?-?-?-?-?-?-?-?-?-?- B -?-?-?-?-?-?--?-?-?-?-?-?- A -?-?-?-?-?-?-?-?-?-?-?-?- B A SM- repeat bps n l -?-?-?-?-?-?-?-?-?-?-?-?- B 12/16/21 -?-?-?-?-?-?-?-?-?-?-?-?- 16w 0d 214 lb (+5 lb) 124/73 Negative -?-?-?-?-?-?-?-?-?-?-?-?- Negative A 153 -?-?-?-?-?-?-?-?-?-?-?-?- B 150 A -?-?-?-?-?-?-?-?-?-?-?-?- B -?-?-?-?-?-?-?-?-?-?-?-?- A -?-?-?-?-?-?-?-?-?-?-?-?- B A JV_ no complaint s today. has anatomy scan scheduled with MFM . 2 panorama tests done both inconclusive. -?-?-?-?-?-?-?-?-?-?-?-?- B 01/17/22 -?-?-?-?-?-?-?-?-?-?-?-?- 20w 4d 218 lb 6 oz (+9 lb 6 oz) Negative -?-?-?-?-?-?-?--?-?-?-?-?- Negative A 139 -?-?-?-?-?-?-?-?-?-?-?-?- B 160 A Cephalic -?-?-?-?-?-?-?-?-?-?-?-?- B Transverse -?-?-?-?-?-?-?-?-?-?-?-?- A -?-?-?-?-?-?-?-?-?-?-?-?- B A JV- no lof, vagi nal bleeding, or cramping. pt is hoping for vag delivery but open to section as needed. has q 4 week scans scheduled with mfm. -?-?-?-?-?-?-?-?-?-?-?-?- B 02/14/22 -?-?-?-?-?-?-?-?-?-?-?-?- 24w 4d 220 lb (+11 lb) 133/78 Negative -?-?-?-?-?-?-?-?-?-?-?-?- Negative A 125 -?-?-?-?-?-?-?-?-?-?-?-?- B 144 A Cephalic -?-?-?-?-?-?-?-?-?-?-?-?- B Transverse -?-?-?-?-?-?-?-?-?-?-?-?- A -?-?-?-?-?-?--?-?-?-?-?-?- B A JV- + FM, no com plaints. rpt growth scan last visit was normal. -?-?-?-?-?-?-?-?-?-?-?-?- B 03/14/22 -?-?-?-?-?-?-?-?-?-?-?-?- 28w 4d 225 lb (+16 lb) 170/80 142/78 Negative -?-?-?-?-?-?-?-?-?-?-?-?- Negative A 140 -?-?-?-?-?-?-?-?-?-?-?-?- B 140 A Cephalic -?-?-?-?-?-?-?-?-?-?-?-?- B [place]ree[place] -?-?-?-?-?-?-?-?-?-?-?-?- A -?-?-?-?-?-?-?-?-?-?-?-?- B A SM- n ovb lof go od fm no regular ctx bps nl at home -?-?-?--?-?-?-?-?-?-?-?-?- B 03/21/22 -?-?-?-?-?-?-?-?-?-?-?-?- 29w 4d 226 lb (+17 lb) 138/83 -?-?-?-?-?-?-?-?-?-?-?-?- A 145 -?-?-?-?-?-?-?-?-?-?-?-?- B 145 A -?-?-?-?-?-?-?-?-?-?-?-?- B -?-?-?-?-?-?-?-?-?-?-?-?- A -?-?-?-?-?-?-?-?-?-?-?-?- B A no vb lof good fm nor egualr ctx -?-?-?-?-?-?-?-?-?-?-?-?- B 03/28/22 -?-?-?-?-?-?-?-?-?-?-?-?- 30w 4d 226 lb (+17 lb) 133/81 Negative -?-?-?-?-?-?--?-?-?-?-?-?- Negative A 145 -?-?-?-?-?-?-?-?-?-?-?-?- B 155 A -?-?-?-?-?-?-?-?-?-?-?-?- B -?-?-?-?-?-?-?-?-?-?-?-?- A -?-?-?-?--?-?-?-?-?-?-?-?- B A SM- no vb lof go od fm no reuglar ctx -?-?-?-?-?-?-?-?-?-?-?-?- B 04/04/22 -?-?-?-?-?-?-?-?-?-?-?-?- 31w 4d 227 lb 4 oz (+18 lb 4 oz) 136/70 Negative -?-?-?-?-?-?-?-?-?-?-?-?- Negative A 153 -?-?-?-?-?-?-?-?-?-?-?-?- B 150 A Cephalic -?-?-?-?-?-?-?-?-?-?-?-?- B Breech -?-?-?-?-?-?-?-?-?-?-?-?- A -?-?-?-?-?-?-?-?-?-?-?-?- B A SM- no vb lof go od fm no regular ctx -?-?-?-?-?-?-?-?-?-?-?-?- B 04/11/22 -?-?-?-?-?-?-?-?-?-?-?-?- 32w 4d 227 lb (+18 lb) 127/84 Negative -?-?-?-?-?-?-?-?-?-?-?-?- Negative A 144 -?-?-?-?-?-?-?-?-?-?-?-?- B 128 A Cephalic -?-?-?-?-?-?-?-?-?-?-?-?- B Cephalic -?-?-?-?-?-?-?-?-?-?-?-?- A -?-?-?-?-?-?-?-?-?-?-?-?- B A JV- no lof, vagi nal bleeding, or dec fm. growth scan from mfm reviewed. continue monthly scans. JV- no lof, vaginal bleeding , or dec fm. growth scan from mfm reviewed. continue monthly scans. NSTs starting 36 weeks, deliver 38 weeks -?-?-?-?-?-?-?-?-?-?-?-?- B 04/17/22 -?-?-?-?-?-?-?-?-?-?-?-?- 33w 3d 227 lb (+18 lb) 138/87 -?-?-?-?-?-?-?-?-?-?-?-?- A 130 -?-?-?-?-?-?-?-?-?-?-?-?- B 135 A Cephalic -?-?-?-?-?-?-?-?-?-?-?-?- B Cephalic 0.5 -?-?-?-?-?-?-?-?-?-?-?-?- 0 A -3 -?-?-?-?-?-?-?-?-?-?-?-?- B A SM- no v nlof go od fm no regular ctx co leg numbeness and pelvic pressure -?-?-?-?-?-?-?-?-?-?-?-?- B 04/25/22 -?-?-?-?-?-?-?-?-?-?-?-?- 34w 4d 229 lb 4 oz (+20 lb 4 oz) 158/86 Negative -?-?-?-?-?-?-?-?-?-?-?-?- Negative A 128 -?-?-?-?-?-?-?-?-?-?-?-?- B 135 A Cephalic -?-?-?-?-?-?-?-?-?-?-?-?- B Cephalic -?-?-?-?-?-?-?-?-?-?-?-?- A -?-?-?-?-?-?-?-?-?-?-?-?- B A JV- bp elevated on 2 separate occasions and elevated at home. no symptoms. will start procardia and order PIH labs. This appears chronic with superimosed PIH. plan for twice weekly nsts and has growth scan next week. plan for delivery at 37 weeks. -?-?-?-?-?-?-?-?-?-?-?-?- B 05/01/22 -?-?-?-?-?-?-?-?-?-?-?-?- 35w 3d 229 lb (+20 lb) 148/92 153/93 156/89 168/91 178/98 141/88 146/94 149/97 161/86 156/83 153/87 146/83 144/88 150/83 153/85 147/88 145/81 144/88 144/88 144/88 156/83 140/81 140/81 -?-?-?-?-?-?-?-?-?-?-?-?- A -?-?-?-?--?-?-?-?-?-?-?-?- B A -?-?-?-?-?-?-?-?-?-?-?-?- B -?-?-?-?-?-?-?-?-?-?-?-?- A -?-?-?-?-?-?-?-?-?-?-?-?- B A -?-?-?-?-?-?-?-?-?-?-?-?- B NST FHR Rate Baby A Baseline: 130 Variability:: Moderate Accelerations:: 15 x 15 Decelerations:: None NST Reactive:: Yes FHR Category:: Category I Uterine Activity:: irregular FHR Rate Baby B Baseline: 130 Variability:: Moderate Accelerations:: 15 x 15 Decelerations:: None NST Reactive:: Yes ROS Constitutional Constitutional: Reports systems reviewed and no addt'l complaints, except as documented Eyes Eyes: Denies change in vision ENT HEENT: Reports systems reviewed and no addt'l complaints, except as documented; Denies headache(s) Cardiovascular Cardiovascular: Reports systems reviewed and no addt'l complaints, except as documented; Denies chest pain or dyspnea Respiratory/Chest Respiratory/Chest: Reports systems reviewed and no addt'l complaints, except as documented Gastrointestinal Gastrointestinal: Reports systems reviewed and no addt'l complaints, except as documented; Denies abdominal pain Genitourinary Genitourinary: Reports systems reviewed and no addt'l complaints, except as documented, contractions Details: present (irregular) and movement Details: present; Denies dysuria or genital lesions Musculoskeletal Musculoskeletal: Reports systems reviewed and no addt'l complaints, except as documented Neurologic Neurologic: Reports systems reviewed and no addt'l complaints, except as documented Endocrine Endocrinology: Reports systems reviewed and no addt'l complaints, except as documented Vital Signs Vital Signs Vital Signs: 05/01/22 08:54 05/01/22 08:54 05/01/22 09:03 Temperature 98.4 F Temperature Source Temporal Pulse Rate Blood Pressure 148/92 H BP Systolic 148 BP Diastolic 92 Pulse Ox 05/01/22 09:03 05/01/22 09:18 05/01/22 09:18 Temperature Temperature Source Pulse Rate 88 85 Blood Pressure 153/93 H BP Systolic 153 BP Diastolic 93 Pulse Ox 08/25/22 09:34 05/01/22 09:34 05/01/22 09:48 Temperature Temperature Source Pulse Rate 96 Blood Pressure 156/89 H 168/91 H BP Systolic 156 168 BP Diastolic 89 91 Pulse Ox 05/01/22 09:48 05/01/22 10:03 05/01/22 10:03 Temperature Temperature Source Pulse Rate 92 85 Blood Pressure 178/98 H BP Systolic 178 BP Diastolic 98 Pulse Ox 05/01/22 10:19 05/01/22 10:19 05/01/22 11:58 Temperature Temperature Source Pulse Rate 96 Blood Pressure 141/88 H 146/94 H BP Systolic 141 146 BP Diastolic 88 94 Pulse Ox 05/01/22 11:58 05/01/22 11:57 05/01/22 12:02 Temperature Temperature Source Pulse Rate 88 71 Blood Pressure BP Systolic BP Diastolic Pulse Ox 97 05/01/22 12:02 05/01/22 12:07 05/01/22 12:07 Temperature Temperature Source Pulse Rate 74 Blood Pressure 149/97 H BP Systolic 149 BP Diastolic 97 Pulse Ox 97 05/01/22 12:54 05/01/22 12:54 05/01/22 12:54 Temperature Temperature Source Pulse Rate 78 82 Blood Pressure 161/86 H BP Systolic 161 BP Diastolic 86 Pulse Ox 05/01/22 12:54 05/01/22 12:58 05/01/22 12:58 Temperature Temperature Source Pulse Rate 79 Blood Pressure 156/83 H BP Systolic 156 BP Diastolic 83 Pulse Ox 99 05/01/22 12:58 05/01/22 12:58 05/01/22 12:58 Temperature 97.7 F L Temperature Source Temporal Pulse Rate Blood Pressure BP Systolic BP Diastolic Pulse Ox 99 05/01/22 11:58 05/01/22 11:58 05/01/22 11:58 Temperature 97.7 F L Temperature Source Temporal Pulse Rate Blood Pressure BP Systolic BP Diastolic Pulse Ox 98 05/01/22 14:02 05/01/22 14:02 05/01/22 14:44 Temperature Temperature Source Pulse Rate 80 Blood Pressure 153/87 H 146/83 H BP Systolic 153 146 BP Diastolic 87 83 Pulse Ox 05/01/22 14:44 05/01/22 14:43 05/01/22 14:44 Temperature Temperature Source Temporal Pulse Rate 85 90 Blood Pressure BP Systolic BP Diastolic Pulse Ox 05/01/22 14:44 05/01/22 14:43 05/01/22 14:02 Temperature 98.6 F Temperature Source Pulse Rate Blood Pressure BP Systolic BP Diastolic Pulse Ox 98 98 05/01/22 15:52 05/01/22 15:52 05/01/22 15:52 Temperature Temperature Source Temporal Pulse Rate 88 Blood Pressure 144/88 H BP Systolic 144 BP Diastolic 88 Pulse Ox 05/01/22 15:52 05/01/22 15:52 05/01/22 16:53 Temperature 98.1 F Temperature Source Pulse Rate Blood Pressure 150/83 H BP Systolic 150 BP Diastolic 83 Pulse Ox 97 05/01/22 16:53 05/01/22 16:53 Temperature Temperature Source Pulse Rate 93 Blood Pressure BP Systolic BP Diastolic Pulse Ox 99 Weight Weight: 229 lb Body Mass Index (BMI) 38.1 Physical Exam Const alert, oriented x3, no apparent distress and healthy appearing HEENT normocephalic and moist oral mucous membranes Head and Scalp: atraumatic Neck full ROM, no lymphadenopathy, supple and thyroid normal General: trachea midline Lymph Lymphatic: no lymphadenopathy noted Chest inspection of chest normal Resp normal respiratory effort Cardio regular rate GI normal to inspection, nondistended, normoactive bowel sounds, soft to palpation and non-tender Inspection: gravid external exam normal Manual OB Exam: estimated gestational size appropriate, presentation cephalic, dilated, effaced and station Extremity normal to inspection General Extremity: Negative for edema Skin no rashes or lesions noted Neuro no focal motor deficits and deep tendon reflexes 2+ bilaterally Motor Exam: strength 5/5 throughout and clonus absent Psych mental status grossly normal Labs Labs Labs: Blood Type O POSITIVE Antibody Screen NEGATIVE Hct 37.2 % (37-47) Hgb 12.8 g/dL (12.0-15.0) Obstetrics US Syphilis Total Ab Non-reactive Rubella IgG Antibody Non-Reactive (Nonreactive) Hep Bs Antigen Non-Reactive (Nonreactive) HIV 1&2 Antibody Non-Reactive (Nonreactive) Glucose 1 Hr 50 gm 134 mg/dL (70-140) Group B Strep DNA Negative (Negative) Rhogam given: No Miscellaneous Test Assessment & Plan (1) Dichorionic diamniotic twin gestation: COMMENT: growth us q 4 weeks in third trimester-has growth US scheduled with MFM until end of . Will need NST weekly at 36 weeks with delivery at 38 weeks, 03/06 normal growth US (2) IUGR (intrauterine growth restriction): COMMENT: A. diagnosed 05/01- [facility] recommendation for steroids and delivery due to coexisting HTN diagnosis. if develops severe preeclampsia recommend immediate delivery (3) Tetanus, diphtheria, and acellular pertussis (Tdap) vaccination declined: (4) White coat syndrome with diagnosis of hypertension: COMMENT: pt states at home bp is normal. getting pr:cr and asking pt to bring in her own home cuff to document accuracy (5) Supervision of high risk , antepartum: COMMENT: PRR MARGE: 06/02/22. girl boy PC: Mack. Spouse:Adria (6) : QUALIFIERS: Weeks of gestation: 34 weeks Qualified Code(s): Z3A.34 - 34 weeks gestation of COMMENT: Declines carrier screen. Wants NIPT. Anatomy normal but limited, has follow-up ultrasound scheduled. (7) Previous child with congenital anomaly, currently , antepartum: COMMENT: 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 (8) History of severe pre-eclampsia: COMMENT: Pre E labs with NOB labs, 81 mg ASA (9) Thyroid nodule: COMMENT: repeat us in fall 2021 (10) Gestational hypertension: COMMENT: procardia started 04/25/22 PLAN: Plan Recommend admit for steroid administration and continuous monitoring and plan delivery after 48 hours of steroids due to gestational hypertension with IUGR present. [facility] recommendation.
[2022-05-01] MEDS: NIFEdipine 30 MG Tablet PO (18:02)
[2022-05-01 18:38] LABS: Chlamydia Trachomatis by PCR Negative (Negative); Neisserai gonorrhoeae by PCR Negative (Negative); Probe Check PASS; Sample Adequacy Control PASS; Specimen Processing Control PASS
[2022-05-01] MEDS: Lactated Ringers 1,000 ML 999 ML IV (19:07)
[2022-05-01] MEDS: 0.9% Saline Lock 10 ML Syringe IV (19:07)
[2022-05-02] VITALS (18 sets, daily range): BP systolic 117–156; BP diastolic 66–90; PULSE 58–100; RESP 17–18; TEMP 36–37; O2SAT 96–100
[2022-05-02] MEDS: Lactated Ringers 1,000 ML 150 ML IV ×4 (00:12→19:09)
--- NOTE | 2022-05-02 11:39 | PN.OBGYN_ITS ---
Subjective Subjective Patient doing well overnight no headache blurry vision no vaginal bleeding or loss of fluid admits good movement. Had several heart rate decelerations for baby A prolonged decelerations for 2 to 4 minutes down into the 70s or 80s with good recovery and reactive tracing reassuring afterwards. Objective Data Objective Data Vital Signs: Vital Signs Temp Pulse BP Pulse Ox 97.0 F L 88 144/88 H 98 05/02/22 04:02 05/02/22 08:12 05/02/22 08:12 05/01/22 20:02 Weight: 229 lb Body Mass Index (BMI) 38.1 Intake & Output: Intake and Output for Last 24 Hours 04/30/22 05/01/22 05/02/22 23:59 23:59 23:59 Intake Total 1000 / 1000 1000 / 1000 Balance 1000 / 1000 1000 / 1000 Lab / Micro Data Result Diagrams: 05/02/22 16:50 05/01/22 11:35 Labs: Laboratory Results - last 24 hr 05/01/22 11:35: WBC 8.2, RBC 4.40, Hgb 13.5, Hct 39.0, MCV 88.6, MCH 30.7, MCHC 34.6, RDW Std Deviation 43.9, RDW Coeff of Cy 13.4, Plt Count 243, MPV 9.9, Immature Gran % (Auto) 0.200, Neut % (Auto) 78.0 H, Lymph % (Auto) 16.2 L, [place] % (Auto) 5.2, Eos % (Auto) 0.2, Baso % (Auto) 0.2, Absolute Neuts (auto) 6.4, Absolute Lymphs (auto) 1.33, Nucleated RBC % 0 05/01/22 11:35: U Random Total Protein < 6.0, Urine Creatinine 21.90, Protein/Creatinin Ratio TNP 05/01/22 11:35: Creatinine 0.48 L, Estim Creat Clear Calc 154.21, Est GFR (MDRD) Af Amer 194, Est GFR (MDRD) Non-Af 160, Uric Acid 6.1 H, AST 18, ALT 16 05/01/22 11:35: Blood Type O POSITIVE, Antibody Screen NEGATIVE 05/01/22 14:22: Syphilis Total Ab Non-reactive 05/01/22 14:22: Hep Bs Antigen Non-Reactive, Hepatitis C Antibody Non-Reactive, HIV 1&2 Antibody Non-Reactive 05/01/22 14:35: Urine Opiates Screen NEGATIVE, Urine Methadone Screen NEGATIVE, Ur Barbiturates Screen NEGATIVE, Ur Phencyclidine Scrn NEGATIVE, Ur Amphetamines Screen NEGATIVE, MDMA (Ecstasy) Screen NEGATIVE, U Benzodiazepines Scrn NEGATIVE, Urine Cocaine Screen NEGATIVE, U Cannabinoids Screen NEGATIVE, Ur Drug Screen Comment 05/01/22 14:35: Chlam trachomat DNA PCR Negative, N.gonorrhoeae DNA (PCR) Negative 05/01/22 14:50: Group B Strep DNA Negative, Specimen Comment Not Reportable Micro: Microbiology 05/01/22 15:45 Nasal Secretion SARS-CoV-2 Antigen (Rapid) - Final ROS Constitutional Constitutional: Reports systems reviewed and no addt'l complaints, except as documented Eyes Eyes: Denies change in vision ENT HEENT: Reports systems reviewed and no addt'l complaints, except as documented; Denies headache(s) Cardiovascular Cardiovascular: Reports systems reviewed and no addt'l complaints, except as documented; Denies chest pain or dyspnea Gastrointestinal Gastrointestinal: Reports systems reviewed and no addt'l complaints, except as documented; Denies abdominal pain Genitourinary Genitourinary: Reports systems reviewed and no addt'l complaints, except as documented, contractions Details: present (irregular) and movement De tails: present; Denies dysuria or genital lesions Neurologic Neurologic: Reports systems reviewed and no addt'l complaints, except as documented Physical Exam Const alert, oriented x3, no apparent distress and healthy appearing Cardio regular rate GI normal to inspection, nondistended, normoactive bowel sounds, soft to palpation and non-tender Inspection: gravid Neuro no focal motor deficits and deep tendon reflexes 2+ bilaterally Motor Exam: strength 5/5 throughout and clonus absent Assessment & Plan (1) Gestational hypertension: COMMENT: procardia started 04/25/22 (2) Thyroid nodule: COMMENT: repeat us in fall 2021 (3) History of severe pre-eclampsia: COMMENT: Pre E labs with NOB labs, 81 mg ASA (4) Previous child with congenital anomaly, currently , antepartum: COMMENT: 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 (5) : QUALIFIERS: Weeks of gestation: 34 weeks Qualified Code(s): Z3A.34 - 34 weeks gestation of COMMENT: Declines carrier screen. Wants NIPT. Anatomy normal but limited, has follow-up ultrasound scheduled. (6) Supervision of high risk , antepartum: COMMENT: PRR MARGE: 06/02/22. girl boy PC: Mack. Spouse:Adria (7) White coat syndrome with diagnosis of hypertension: COMMENT: pt states at home bp is normal. getting pr:cr and asking pt to bring in her own home cuff to document accuracy (8) Tetanus, diphtheria, and acellular pertussis (Tdap) vaccination declined: (9) IUGR (intrauterine growth restriction): COMMENT: A. diagnosed 05/01- [facility] recommendation for steroids and delivery due to coexisting HTN diagnosis. if develops severe preeclampsia recommend immediate delivery (10) Dichorionic diamniotic twin gestation: COMMENT: growth us q 4 weeks in third trimester-has growth US scheduled with MFM until end of . Will need NST weekly at 36 weeks with delivery at 38 weeks, 03/06 normal growth US (11) Prolonged heart deceleration: COMMENT: Multiple decelerations baby A overnight overall reassuring now category 1 PLAN: Plan Continue expectant management at this time give second dose of steroids at noon and plan delivery for tomorrow. Would recommend delivery if persistent decels or severely elevated bps
[2022-05-02] MEDS: Betamethasone/Betamethasone 30 MG/5 ML Vial 12 MG IM (12:10)
[2022-05-02 17:00] LABS: Absolute Lymphocyte Count 0.78 X10^3/uL (0.83-4.51); Absolute Neutrophil Count 8.1 X10^3/uL (2.0-7.7); Basophil# 0.01 X10^3/uL; Basophil% 0.1 % (0-1); Hematocrit 37.2 % (37-47); Hemoglobin 12.8 g/dL (12.0-15.0); Lymphocyte # 0.78 X10^3/ul (0.83-4.51); Lymphocyte % 8.4 % (19-41); Mean Corp Hgb Conc 34.4 g/dL (32-36); Mean Corpuscular Hgb 30.8 pg (27.0-32.0); Mean Corpuscular Volume 89.6 fL (81-99); Mean Platelet Vol. 9.7 fl (6.2-12.0); Monocyte# 0.27 X10^3/uL; Monocyte% 2.9 % (0-10); NRBC Flagged by Analyzer 0 % (0-5); Neutrophil % 87.7 % (47-70); Platelet Count 235 K/mm3 (150-450); RBC Distribution Width CV 13.8 % (11.6-14.6); RBC Distribution Width SD 45.1 fl (35.1-43.9); Red Blood Count 4.15 M/mm3 (4.2-5.4); White Blood Count 9.2 K/mm3 (4.4-11.0)
[2022-05-02] MEDS: NIFEdipine 30 MG Tablet PO (17:41)
[2022-05-02] MEDS: Acetaminophen 500 MG Tablet 1000 MG PO (17:42)
[2022-05-02] MEDS: Lactated Ringers 1,000 ML 999 ML IV (18:08)
[2022-05-02] MEDS: Sodium Citrate/Citric Acid 30 ML UDC PO (19:50)
[2022-05-02] MEDS: Cefazolin 2 GM in 0.9% Normal Saline 100 ML IV (20:04)
[2022-05-02] MEDS: Ondansetron 4 MG/2 ML Vial IV (20:40)
[2022-05-02] MEDS: Oxytocin 30 units/NS 500 ml 30 UNITS/500 ML IV.SOLN 167 UNITS IV (21:10)
--- NOTE | 2022-05-02 21:13 | PCM.PN.BLA ---
Progress Note baby a deceleration into 60s x 4 minutes- recovery with reactivity. decision to proceed with delivery. discussed risks of IOL due to decels and iugr vs deicison for primary , patient wishes to proceed with primary
--- NOTE | 2022-05-02 21:14 | EX.PCM.OBRPT ---
Assessment & Plan (1) Prolonged heart deceleration: COMMENT: persistent- recommend proceeding with delivery, discussed IOL vs , decision to proceed with . (2) Gestational hypertension: COMMENT: procardia started 04/25/22 (3) Thyroid nodule: COMMENT: repeat us in fall 2021 (4) History of severe pre-eclampsia: COMMENT: Pre E labs with NOB labs, 81 mg ASA (5) Previous child with congenital anomaly, currently , antepartum: COMMENT: 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 (6) : QUALIFIERS: Weeks of gestation: 34 weeks Qualified Code(s): Z3A.34 - 34 weeks gestation of COMMENT: Declines carrier screen. Wants NIPT. Anatomy normal but limited, has follow-up ultrasound scheduled. (7) Supervision of high risk , antepartum: COMMENT: PRR MARGE: 06/02/22. girl boy PC: Mack. Spouse:Adria (8) White coat syndrome with diagnosis of hypertension: COMMENT: pt states at home bp is normal. getting pr:cr and asking pt to bring in her own home cuff to document accuracy (9) Tetanus, diphtheria, and acellular pertussis (Tdap) vaccination declined: (10) IUGR (intrauterine growth restriction): COMMENT: A. diagnosed 05/01- MFM recommendation for steroids and delivery due to coexisting HTN diagnosis. if develops severe preeclampsia recommend immediate delivery (11) Dichorionic diamniotic twin gestation: COMMENT: growth us q 4 weeks in third trimester-has growth US scheduled with MFM until end of . Will need NST weekly at 36 weeks with delivery at 38 weeks, 03/06 normal growth US (12) delivery delivered: COMMENT: LTCS twins a iugr decels. girl Génesis boy Aftab 35 GHTN Maternal Data Information MARGE Calculator Estimated Delivery Date Method Current WG Current Estimate 06/02/22 LMP (Certain) 35w 4d # 2 Final MARGE Source: LMP Details Operative Information Date of Procedure: 05/02/22 Pre-Operative Diagnosis: Previous Post-Operative Diagnosis: same Indications for : Multiple Gestation and - (prolonged decelerations IUGR baby a GHTN) Classification: EDNA Procedure Type: low transverse international project engineer #1: Mary Brady Type of Anesthesia: Spinal Special Medications: none Antibiotic Given: Ancef 2 grams IV x1 Drain: Taylor to straight drain Estimated Blood Loss: 800 Fluids Replaced: crystalloid Findings Description of Procedure: Spinal anesthesia was placed without difficulty. Taylor catheter was placed. The patient was placed in the dorsal supine position with leftward tilt. Patient was prepped and draped in the normal sterile fashion. Pfannenstiel skin incision was made with the scalpel and carried through to the underlying layer of fascia with the scalpel. Fascia was nicked in the midline and the incision extended laterally. The rectus bellies were dissected off superiorly and inferiorly with out complication both sharply and bluntly. The peritoneum was entered digitally. The incision was stretched and a low transverse uterine incision was made with the scalpel. The 's head was delivered atraumatically followed by the anterior and posterior shoulders without complication the rest of the infant delivered. The cord was clamped and cut and the was handed off to awaiting nurse. second membranes ruptured and infant delivered without complication. The placentas were delivered spontaneously immediately following and was noted to be intact and have a three-vessel cord. The uterus was exteriorized cleared of all clots and debris, and the incision was closed in a double layer closure using #1 Monocryl. The ovaries and fallopian tubes were noted to be within normal limits. The uterus was returned to the maternal abdomen and gutters were cleared of all clots and debris. The peritoneum was closed with 3-0 Monocryl in a running fashion. keshia applied to rectus muscles for hemostasis, Fascia was closed with 0 PDS in a running fashion. Subcutaneous tissue was copiously irrigated and the skin was closed with 3-0 Monocryl in a subcuticular fashion. Mepilex dressing was applied without complication. Patient was taken to recovery in stable condition. It was discussed with the patient that based on the clinical information obtained during this encounter, combined with her history, at this time I would recommend vagianl or cesareans for future deliveries if further pregnancies are desired. Amniotic Membrane Rupture Type: Artificial Amniotic Fluid Description: Clear Placental Delivery Description: Spontaneous Placenta Disposition: [facility] Cord Vessel Description: 3 Vessels Cord Entanglement: None Cord Gases: ABG and VBG Infant A Gender: Female Delayed Cord Clamping: No Complications Risks of Surgery Discussed w/Patient: Bleeding, Infection, Need for Future C-Sections and Injury to surrounding structure(s) including bowel and bladder Vaginal Delivery Operative Information Date of Procedure: 05/02/22 Complication Complications: None Admit VTE Documentation VTE Present on Admission: No VTE Mechan Device Prophylaxis: SCD's Baby B Information Amniotic Membrane Rupture Type: Artificial Presentation: Vertex Operative Information Mode of Delivery: Cord Vessel Description: 3 Vessels Cord Entanglement: Around neck x 1, loose Cord Gases: ABG and VBG B gender: Male Procedures Urinary/Genital [id number]: [id number] delivery+PP Care(MARIA E) (twins both )
--- NOTE | 2022-05-02 21:25 | DCINST_ITS ---
Discharge Instructions Diet Discharge Diet: No restrictions Activity Discharge Activity: Return to Normal Activity, May Drive (when pain free and off narcotic pain meds), May Shower and May Take a Tub Bath (in 4 weeks) May resume sexual activity in: 6 weeks Weight Bearing Status: Full weight bearing Lifting Restrictions: under 30 lbs for 6 weeks Dressing / Incision Call your doctor if your incision/area has: Continuous Slow Oozing, Sudden Increased Bleeding, Increased Pain/ Swelling, Increased Redness, Foul Smelling Discharge and - Call your doctor if you observe: Fever of 101 or Higher, Using more than 1 pad per hour, Shortness of breath, Chest pain and Uncontrolled pain Suture Line Care: Avoid Pulling/Pushing and Avoid Pinching/Bending Change Dressing in: 1 week (leave open to air after removed) Remove Dressing in: 1 week (if present) Cleanse incision/area with: Soap & Water and Keep Dressing Clean & Dry Follow Up Care Please Follow Up With: Coral Church MD When: Call to make an appointment with your doctor for a postop visit in 2 and 6 weeks. Test Results: Test results from this visit will be discussed in further detail at your follow- up appointment, if applicable. Discharge Plan Admission Admit Date/Time: 05/01/22 10:25 Attending Provider: Coral Church Primary Care Provider: Noemi Schwarz Discharge Orders/Prescriptions Prescriptions: New oxycodone-acetaminophen [Percocet] 5-325 mg tablet 1 tab PO Q6H PRN (Reason: pain) 7 Days Qty: 20 0RF naproxen 250 mg tablet 250 - 500 mg PO Q8H PRN PRN (Reason: MILD PAIN) Qty: 30 1RF Continued prenat.vits,iraj,[id number] Tablet 1 tab PO DAILY nifedipine [Procardia XL] 30 mg tablet extended release 24hr 30 mg PO DAILY Referrals / Follow Up: Noemi Schwarz MD [Primary Care Provider] - Disposition Disposition (needs filled in before D/C Order can be placed): Home, Self Care
[2022-05-02] MEDS: Ketorolac 30 MG/ML Syringe IV (22:14)
[2022-05-03] VITALS (10 sets, daily range): BP systolic 131–168; BP diastolic 76–94; PULSE 68–89; RESP 14–18; TEMP 36.1–36.6; O2SAT 95–100
[2022-05-03] MEDS: Acetaminophen 500 MG Tablet 1000 MG PO ×4 (00:32→18:46)
[2022-05-03] MEDS: Lactated Ringers 1,000 ML 100 ML IV (00:34)
[2022-05-03] MEDS: Ketorolac 30 MG/ML Syringe IV ×3 (03:16→15:52)
[2022-05-03 05:30] LABS: Hemoglobin 13.3 g/dL (12.0-15.0); Mean Corp Hgb Conc 34.1 g/dL (32-36); Mean Corpuscular Hgb 30.9 pg (27.0-32.0); Mean Corpuscular Volume 90.5 fL (81-99); Mean Platelet Vol. 9.7 fl (6.2-12.0); Platelet Count 257 K/mm3 (150-450); RBC Distribution Width CV 13.5 % (11.6-14.6); RBC Distribution Width SD 44.4 fl (35.1-43.9); Red Blood Count 4.31 M/mm3 (4.2-5.4); White Blood Count 18.4 K/mm3 (4.4-11.0)
--- NOTE | 2022-05-03 09:39 | PN.OBGYN_ITS ---
Subjective Subjective Patient doing well without complaints. Tolerating PO. Ambulating and voiding without difficulty. infant feeding well. Denies chest pain, shortness of breath, calf pain/swelling, fevers, chills, lightheadedness. Objective Data Objective Data Vital Signs: Vital Signs Temp Pulse Resp BP Pulse Ox O2 Del Method 97.1 F L 89 14 146/89 H 100 Room Air 05/03/22 08:15 05/03/22 08:15 05/03/22 08:15 05/03/22 08:15 05/03/22 08:15 05/03/22 08:15 Oxygen Delivery Method Room Air Weight: 229 lb Body Mass Index (BMI) 38.1 Intake & Output: Intake and Output for Last 24 Hours 05/01/22 05/02/22 05/03/22 23:59 23:59 23:59 Intake Total 1000 / 1000 4360 / 4360 960 / 960 Output Total 600 / 600 600 / 600 Balance 1000 / 1000 3760 / 3760 360 / 360 Lab / Micro Data Result Diagrams: 05/03/22 05:25 05/01/22 11:35 Labs: Laboratory Results - last 24 hr 05/02/22 16:50: WBC 9.2, RBC 4.15 L, Hgb 12.8, Hct 37.2, MCV 89.6, MCH 30.8, MCHC 34.4, RDW Std Deviation 45.1 H, RDW Coeff of Cy 13.8, Plt Count 235, MPV 9.7, Immature Gran % (Auto) 0.900, Neut % (Auto) 87.7 H, Lymph % (Auto) 8.4 L, [place] % (Auto) 2.9, Eos % (Auto) 0.0, Baso % (Auto) 0.1, Absolute Neuts (auto) 8.1 H, Absolute Lymphs (auto) 0.78 L, Nucleated RBC % 0 05/03/22 05:25: WBC 18.4 H, RBC 4.31, Hgb 13.3, Hct 39.0, MCV 90.5, MCH 30.9, MCHC 34.1, RDW Std Deviation 44.4 H, RDW Coeff of Cy 13.5, Plt Count 257, MPV 9.7 Micro: Microbiology 05/01/22 15:45 Nasal Secretion SARS-CoV-2 Antigen (Rapid) - Final ROS Constitutional Constitutional: Reports systems reviewed and no addt'l complaints, except as d ocumented Cardiovascular Cardiovascular: Reports systems reviewed and no addt'l complaints, except as documented Respiratory/Chest Respiratory/Chest: Reports systems reviewed and no addt'l complaints, except as documented Gastrointestinal Gastrointestinal: Reports systems reviewed and no addt'l complaints, except as documented Physical Exam Const alert, oriented x3 and no apparent distress HEENT Head and Scalp: atraumatic Resp normal respiratory effort GI soft to palpation and non-tender Inspection: incision intact, healing well and drainage (none) Bimanual Exam - Vag & Uterus: uterus non-tender Uterus Palpation: uterus fundus firm (below Umbilicus) Assessment & Plan (1) delivery delivered: COMMENT: LTCS twins a iugr decels. girl Génesis boy Aftab 35 GHTN (2) Gestational hypertension: COMMENT: procardia started 04/25/22 (3) Thyroid nodule: COMMENT: repeat us in fall 2021 PLAN: Plan s/p LTCS PPD # 1 1. routine post care 2. breast feeding- support given 3. rh positive 4. rubella immune
[2022-05-03] MEDS: Enoxaparin 40 MG/0.4 ML Syringe SC (09:42)
[2022-05-03] MEDS: Senna/Docusate Sodium 1 Tablet PO (09:42)
[2022-05-03] MEDS: Prenatal Vits Tablet 1 TABLET PO (09:42)
[2022-05-03] MEDS: NIFEdipine 30 MG Tablet PO ×2 (12:43→17:54)
[2022-05-03] MEDS: 0.9% Saline Lock 10 ML Syringe IV (15:53)
[2022-05-03] MEDS: Naproxen 500 MG Tablet PO (21:57)
[2022-05-04] VITALS (9 sets, daily range): BP systolic 135–169; BP diastolic 79–99; PULSE 76–90; RESP 14–18; TEMP 36.3–37.1; O2SAT 95–97
[2022-05-04] MEDS: Acetaminophen 500 MG Tablet 1000 MG PO ×4 (00:56→18:51)
--- NOTE | 2022-05-04 03:53 | PCM.PN.OB ---
Subjective Subjective Patient doing well without complaints. Tolerating PO. Ambulating and voiding without difficulty. feeding well. Denies chest pain, shortness of breath, calf pain/swelling, fevers, chills, lightheadedness. Objective Data Objective Data Vital Signs: Vital Signs Temp Pulse Resp BP Pulse Ox O2 Del Method 97.4 F L 78 16 140/85 H 95 Room Air 05/04/22 00:54 05/04/22 00:54 05/04/22 00:54 05/04/22 00:54 05/03/22 19:39 05/04/22 00:54 Oxygen Delivery Method Room Air Weight: 229 lb Body Mass Index (BMI) 38.1 Intake & Output: Intake and Output for Last 24 Hours 05/02/22 05/03/22 05/04/22 23:59 23:59 23:59 Intake Total 4360 / 4360 960 / 960 Output Total 600 / 600 1500 / 1500 Balance 3760 / 3760 -540 / -540 Lab / Micro Data Result Diagrams: 05/03/22 05:25 05/01/22 11:35 Labs: Laboratory Results - last 24 hr 05/03/22 05:25: WBC 18.4 H, RBC 4.31, Hgb 13.3, Hct 39.0, MCV 90.5, MCH 30.9, MCHC 34.1, RDW Std Deviation 44.4 H, RDW Coeff of Cy 13.5, Plt Count 257, MPV 9.7 Micro: Microbiology 05/01/22 15:45 Nasal Secretion SARS-CoV-2 Antigen (Rapid) - Final ROS Constitutional Constitutional: Reports systems reviewed and no addt'l complaints, except as documented Cardiovascular Cardiovascular: Reports systems reviewed and no addt'l complaints, except as documented Respiratory/Chest Respiratory/Chest: Reports systems reviewed and no addt'l complaints, except as documented Gastrointestinal Gastrointestinal: Reports systems reviewed and no addt'l complaints, except as documented Physical Exam Const alert, oriented x3 and no apparent distress HEENT Head and Scalp: atraumatic Resp normal respiratory effort GI soft to palpation and non-tender Inspection: incision intact, healing well and drainage (none) Bimanual Exam - Vag & Uterus: uterus non-tender Uterus Palpation: uterus fundus firm (below Umbilicus) Assessment & Plan (1) delivery delivered: COMMENT: LTCS twins a iugr decels. girl Génesis boy Aftab 35 GHTN (2) Gestational hypertension: COMMENT: procardia started 04/25/22, increased to 30 BID 05/03 (3) Thyroid nodule: COMMENT: repeat us in fall 2021 PLAN: Plan s/p LTCS PPD # 2 1. routine post care 2. breast feeding- support given 3. rh positive 4. rubella immune
[2022-05-04] MEDS: Naproxen 500 MG Tablet PO ×3 (05:54→22:03)
[2022-05-04] MEDS: Enoxaparin 40 MG/0.4 ML Syringe SC (10:31)
[2022-05-04] MEDS: Prenatal Vits Tablet 1 TABLET PO (10:31)
[2022-05-04] MEDS: Senna/Docusate Sodium 1 Tablet PO (10:31)
[2022-05-04] MEDS: NIFEdipine 30 MG Tablet PO ×2 (10:31→22:03)
[2022-05-04] MEDS: Labetalol 100 MG Tablet PO ×2 (13:54→22:03)
[2022-05-05] MEDS: Acetaminophen 500 MG Tablet 1000 MG PO ×3 (00:50→14:06)
[2022-05-05 03:42] VITALS: BP 145/84; PULSE 93; RESP 16; TEMP 36.3; O2SAT 96
[2022-05-05] MEDS: Labetalol 100 MG Tablet PO ×2 (06:02→14:27)
[2022-05-05] MEDS: Naproxen 500 MG Tablet PO ×2 (06:02→14:06)
[2022-05-05 08:02] VITALS: BP 153/100; PULSE 87; RESP 18; TEMP 36.6; O2SAT 97
--- NOTE | 2022-05-05 08:15 | PCM.DC.SUM ---
Providers Date of Admission: 05/01/22 Primary Care Physician: Dr. Noemi Schwarz MD Reason For Visit: LABOR AND DELIVERY Diagnosis Discharge Diagnosis (1) delivery delivered: Status: Acute Code(s): O82 - Encounter for delivery without indication (2) Gestational hypertension: Status: Acute Code(s): O13.9 - Gestational [-induced] hypertension without significant proteinuria, unspecified trimester (3) Thyroid nodule: Status: Chronic Code(s): E04.1 - Nontoxic single thyroid nodule Plan s/p LTCS PPD # 3 1. routine post care 2. breast feeding- support given 3. rh positive 4. rubella immune Medications at Discharge Home Medications prenat.vits,iraj,rci-uwcc-huffu 1 tab PO DAILY 10/15/21 naproxen 250 mg tablet 250 - 500 mg PO Q8H PRN PRN MILD PAIN #30 tabs 05/02/22 oxycodone-acetaminophen 5 mg-325 mg tablet (Percocet) 1 tab PO Q6H PRN pain 7 days #20 tabs 05/02/22 labetalol 100 mg tablet 100 mg PO TID #90 tabs 05/05/22 naproxen 250 mg tablet 250 - 500 mg PO Q8H PRN PRN MILD PAIN #30 tabs 05/05/22 nifedipine 30 mg tablet,extended release 24 hr (Procardia XL) 30 mg PO BID blood pressure #60 tabs 05/05/22 oxycodone-acetaminophen 5 mg-325 mg tablet (Percocet) 1 tab PO Q6H PRN pain 7 days #20 tabs 05/05/22 Hospital Course Summary of Care Provided Hospital Course: patient presented for elevated bps and IUGR twin A. it was reocmmended for delivery by MFM after steroids but then A who was IUGR had decels and it was decided to deliver after the second dose even sooner due to this, and by CS due to the decels. Postoperatively patient had return of bowel and bladder function and was ambulating well, tolerating adequate p.o., and was stable for discharge to home on postop day #3. bps were labile initially and manageed with procardia and labetalol. Discharge medications naproxen and Percocet labetalol and procardia. Follow-up in office in 2 weeks for incision check in 6 weeks for visit. Routine post section diet and activity instructions. Weight / BMI Weight Weight: 229 lb Body Mass Index (BMI) 38.1 ABG / Lab / Microbiology Data Result Diagrams: 05/03/22 05:25 05/01/22 11:35 Microbiology: Microbiology 05/01/22 Unknown Genital vaginal Group B Streptococcus Culture - Final Group B Beta Streptococcus is not isolated. 05/01/22 15:45 Nasal Secretion SARS-CoV-2 Antigen (Rapid) - Final D/C Instructions Discharge Diet: No restrictions Discharge Activity: May Not Drive (for 2 weeks or while taking narcotic pain medications.), May Shower and May Take a Tub Bath (in 7 days) May shower in (days): 0 May resume sexual activity in: 6 weeks Weight Bearing Status: Full weight bearing Call your doctor if your incision/area has: Continuous Slow Oozing, Sudden Increased Bleeding, Increased Pain/ Swelling, Increased Redness, Foul Smelling Discharge and - Call your doctor if you observe: Fever of 101 or Higher, Using more than 1 pad per hour, Shortness of breath, Chest pain and Uncontrolled pain Suture Line Care: Avoid Pulling/Pushing and Avoid Pinching/Bending Cleanse incision/area with: Soap & Water and Keep Dressing Clean & Dry Please Follow Up With: Coral Church MD When: Call to make an appointment with your doctor for a postop visit in 2 and 6 weeks. Meaningful Use Info Meaningful Use Diagnoses (Choose all that apply): None applicable Discharge Plan Admission Admit Date/Time: 05/01/22 10:25 Attending Provider: Coral Church Primary Care Provider: Noemi Schwarz Discharge Orders/Prescriptions Prescriptions: New oxycodone-acetaminophen [Percocet] 5-325 mg tablet 1 tab PO Q6H PRN (Reason: pain) 7 Days Qty: 20 0RF naproxen 250 mg tablet 250 - 500 mg PO Q8H PRN PRN (Reason: MILD PAIN) Qty: 30 1RF labetalol 100 mg tablet 100 mg PO TID Qty: 90 3RF naproxen 250 mg tablet 250 - 500 mg PO Q8H PRN PRN (Reason: MILD PAIN) Qty: 30 1RF oxycodone-acetaminophen [Percocet] 5-325 mg tablet 1 tab PO Q6H PRN (Reason: pain) 7 Days Qty: 20 0RF Continued prenat.vits,iraj,[id number]-zridp Tablet 1 tab PO DAILY Changed nifedipine [Procardia XL] 30 mg tablet extended release 24hr 30 mg PO BID Qty: 60 2RF Referrals / Follow Up: Noemi Schwarz MD [Primary Care Provider] - Disposition Disposition (needs filled in before D/C Order can be placed): Home, Self Care
--- NOTE | 2022-05-05 09:38 | PCM.PN.OB ---
Subjective Subjective Patient doing well without complaints. Tolerating PO. Ambulating and voiding without difficulty. feeding well. Denies chest pain, shortness of breath, calf pain/swelling, fevers, chills, lightheadedness. bps WNL when patient takes with validated cuff on her own without providers in the room Objective Data Objective Data Vital Signs: Vital Signs Temp Pulse Resp BP Pulse Ox O2 Del Method 97.8 F 87 18 153/100 H 97 Room Air 05/05/22 08:02 05/05/22 08:02 05/05/22 08:02 05/05/22 08:02 05/05/22 08:02 05/05/22 08:02 Oxygen Delivery Method Room Air Weight: 229 lb Body Mass Index (BMI) 38.1 Intake & Output: Intake and Output for Last 24 Hours 05/03/22 05/04/22 05/05/22 23:59 23:59 23:59 Intake Total 960 / 960 Output Total 1500 / 1500 Balance -540 / -540 Lab / Micro Data Result Diagrams: 05/03/22 05:25 05/01/22 11:35 Micro: Microbiology 05/01/22 Unknown Genital vaginal Group B Streptococcus Culture - Final Group B Beta Streptococcus is not isolated. 05/01/22 15:45 Nasal Secretion SARS-CoV-2 Antigen (Rapid) - Final ROS Constitutional Constitutional: Reports systems reviewed and no addt'l complaints, except as documented Cardiovascular Cardiovascular: Reports systems reviewed and no addt'l complaints, except as documented Respiratory/Chest Respiratory/Chest: Reports systems reviewed and no addt'l complaints, except as documented Gastrointestinal Gastrointestinal: Reports systems reviewed and no addt'l complaints, except as documented Physical Exam Const alert, oriented x3 and no apparent distress HEENT Head and Scalp: atraumatic Resp normal respiratory effort GI soft to palpation and non-tender Inspection: incision intact, healing well and drainage (none) Bimanual Exam - Vag & Uterus: uterus non-tender Uterus Palpation: uterus fundus firm (below Umbilicus) Assessment & Plan (1) delivery delivered: COMMENT: LTCS twins a iugr decels. girl Génesis boy Aftab 35 GHTN (2) Gestational hypertension: COMMENT: procardia started 04/25/22, increased to 30 BID 05/03, added labetalol 100 TID (3) Thyroid nodule: COMMENT: repeat us in fall 2021 PLAN: Plan s/p LTCS PPD # 3 1. routine post care 2. breast feeding- support given 3. rh positive 4. rubella immune
[2022-05-05] MEDS: Prenatal Vits Tablet 1 TABLET PO (10:21)
[2022-05-05] MEDS: NIFEdipine 30 MG Tablet PO (10:21)
[2022-05-05] MEDS: Senna/Docusate Sodium 1 Tablet PO (10:22)
[2022-05-05] MEDS: Enoxaparin 40 MG/0.4 ML Syringe SC (10:22)
[2022-05-05 14:12] VITALS: BP 159/97; BP 161/92; PULSE 84; RESP 18; TEMP 36.5; O2SAT 97
--- NOTE | 2022-05-09 10:15 | CASEMGMT ---
Social Work Assessment Labor and Delivery Unit Patient Address: [address] [place] [address] [place] [address] Phone number: [phone] Referred By: Social work identification Date of Intervention: 05/09/2022 Time of Intervention: 1015 Reason for Referral: Twin delivery, twins admitted to special care nursery, resources and support History obtained from: Medical records and mother of baby (MOB) Addie Huitron Household composition: MOB, father of baby (FOB), and older child. Home situation is reportedly safe and adequate. Patient's parent/guardian status: SURESH is a 32-year-old female, to the FOB Adria Huitron for 7 years. No reports of any type of abuse, control or intimidation in this relationship. MOB and FOB now have 3 children together: Mack (05/08/2019), baby A/Génesis (05/02/2022), and baby B/Aftab Kaur (05/02/2022). Medical History: SURESH is 2, para 1 now 3 after delivering twins. care started at 8 weeks gestation and regular thereafter. MOB developed gestational hypertension. Delivered infant at 34 weeks via EDNA . Baby A was identified IUGR and delivered weighing 4 pounds 6 ounces. Apgars 6 and 9 at 1 and 5 minutes of life respectively. Baby B weighed 5 pounds 12 ounces and Apgars were 8 and 9. Both infants were admitted into the special care nursery at [facility] for further care and treatment related to prematurity. Educational Status: No reported issues with reading, writing, or learning comprehension. Financial Status: FOB works as a abreu and MOB was working at a [employer] shop. Parents have [place] Medicaid for insurance. Supplies: MOB reports to have necessary supplies to care for baby at home including car seat and safe sleep space. Childcare/Caregiver(s): MOB and FOB. Transportation: No reported issues with transportation and the family owns a minivan. Programs/Agencies Involved: [place] Medicaid through job and family services. Information on WIC provided as well as help me grow. Information on [facility] for history of clubfoot in children. No reports of legal or children services history. Behavioral Health Issues: Mental Health History: MOB denies any mental health history such as depression. Does have a history of whitecoat syndrome where the MOB blood pressure goes up but other than that denies any history of emotional health or distress. No history of SI. Substance Use History: Denies any history of substance use. Family History: Not discussed Drug Screens: Negative maternal drug screen on 05/01/2022. Family/Social Stressors: Premature delivery with infants admitted into the special care nursery. Support Systems: MOB reports to have a good support system from father of baby who will be off of work for about a month, and then MOB sisters who are local. Depression/Shaken Baby/Safe Sleeping: Information provided on safe sleeping, shaken baby prevention, and mood and anxiety disorders. ASSESSMENT: Met with MOB, introducing to self and social work role. MOB pleasant and cooperative willing to talk to this entry writer. MOB reports to have all necessary supplies to care for the 's including car seats, safe sleep spaces, clothing diapers and wipes. Adequate support at home going from the FOB and MOB sisters. MOB denies any current concerns regarding emotional health distress. Education on mood and anxiety disorders and information provided for home-going. Information provided on [facility] due to the baby boy having clubfeet history. Family is familiar with this program from older child clubfoot as well. And help me grow information provided as well. No reported concerns by staff regarding parent-child interactions or bonding. On the special care nursery. PLAN: MOB will discharge home and will discharge home from the special care nursery ready. Resources for home-going have been provided to this family. No other services requested or indicated. -LEIGHANN Restrepo, ELIZABETH *This note was generated with [employer] software. It may contain incorrect words, spelling, and punctuation that were not noted in review of the chart prior to signing*
== END 2022-05-05 15:20 | disposition home or self-care (01) | DRG 540 ==
LOC: WPOUT 10:31 → WP 10:32
PROVIDERS: Obstetrics & Gynecology; Admitting Provider Obstetrics & Gynecology; PCP Family Medicine; Referring Provider Obstetrics & Gynecology; Visit Provider Obstetrics & Gynecology
DX: O13.4 Gestational [pregnancy-induced] hypertension without significant proteinuria, complicating childbirth (principal); Z37.2 Twins, both liveborn; E04.1 Nontoxic single thyroid nodule; Z3A.35 35 weeks gestation of pregnancy; O99.284 Endocrine, nutritional and metabolic diseases complicating childbirth; O76 Abnormality in fetal heart rate and rhythm complicating labor and delivery; O69.81X1 Labor and delivery complicated by cord around neck, without compression, fetus 1; O69.81X2 Labor and delivery complicated by cord around neck, without compression, fetus 2; Z28.21 Immunization not carried out because of patient refusal; Z87.59 Personal history of other complications of pregnancy, childbirth and the puerperium
CPT/HCPCS: 36415; 59025; 59050; 80307; 82565; 82570; 84156; 84450; 84460; 84550; 85025; 85027; 86703; 86780; 86803; 86850; 86900; 86901; 87081; 87340; 87491; 87591; 87653; 87811; 99218; J7120; A4216; G0378; J0702; J2405

== ENCOUNTER → 2022-06-17 | Outpatient (CLI) | payer MEDICAID, SELFPAY ==
[2022-06-17 18:43] LABS: T4 Total, Thyroxin 6.6 ug/dL (4.8-13.9); Thyroid Stim Hormone (TSH) 1.06 uIU/mL (0.358-3.74)
== END | disposition home or self-care (01) ==
LOC: MFPLAB 16:16
PROVIDERS: PCP Family Medicine; Referring Provider Family Medicine; Visit Provider Nurse Practitioner Family
DX: E04.2 Nontoxic multinodular goiter (principal)
CPT/HCPCS: 36415; 84436; 84443; 84481

== ENCOUNTER → 2022-06-25 | Outpatient (CLI) | payer MEDICAID, SELFPAY ==
--- NOTE | 2022-06-25 12:11 | US_ITS ---
STUDY: THYROID ULTRASOUND REASON FOR EXAM: Female, 32 years old. History of thyroid nodule TECHNIQUE: Ultrasound evaluation of the thyroid was performed with real-time and static kirby-scale imaging. COMPARISON: None. FINDINGS: RIGHT LOBE: The right lobe of the thyroid gland measures 4.8 x 1.4 x 1.3 cm. There is a heterogeneous echotexture. There is a stable 0.7 x 0.9 x 0.5 cm hypoechoic nodule LEFT LOBE: The left lobe of the thyroid gland measures 4.9 x 1.7 x 1.3 cm. There is a heterogeneous echotexture. Stable 1.4 x 1.1 x 1.1 cm nodule in the lower pole. ISTHMUS: The isthmus measures 1.9 mm. There is an isthmus nodule measuring 0.5 x 0.4 x 0.2 cm The regional lymph nodes are normal. US/Thyroid IMPRESSION: Stable heterogeneous thyroid gland with bilateral solid nodules, no interval change since 07/11/2021. Another year follow-up is recommended to assess stability Electronically Signed: Mahin Tariq MD at 13:15 EDT ,
== END | disposition home or self-care (01) ==
LOC: US 12:10
PROVIDERS: PCP Family Medicine; Referring Provider Nurse Practitioner Family; Visit Provider Nurse Practitioner Family
DX: E04.2 Nontoxic multinodular goiter (principal)
CPT/HCPCS: 76536

== ENCOUNTER → 2023-06-26 | Outpatient (CLI) | payer MEDICAID, SELFPAY ==
--- NOTE | 2023-06-26 12:47 | US_ITS ---
STUDY: THYROID ULTRASOUND REASON FOR EXAM: Female, 33 years old. Multiple thyroid nodules TECHNIQUE: Ultrasound evaluation of the thyroid was performed with real-time and static kirby-scale imaging. COMPARISON: Thyroid ultrasound 06/25/2022. FINDINGS: RIGHT LOBE: The right lobe of the thyroid gland measures 4.8 x 1.6 x 1.7 cm. There is a heterogeneous echotexture. Solid isoechoic nodule in the right mid thyroid lobe measuring 0.7 x 0.7 x 0.7 cm, previously 0.9 x 0.7 x 0.5 cm. LEFT LOBE: The left lobe of the thyroid gland measures 4.3 x 1.6 x 1.4 cm. There is a heterogeneous echotexture. There are multiple solid nodules. The dominant nodule in the left lower thyroid lobe is slightly hyperechoic. This measures 1.3 x 1.1 x 1.2, previously 1.4 x 1.1 x 1.4 cm. ISTHMUS: The isthmus measures 3 mm. There is a hypoechoic elliptical solid nodule in the thyroid isthmus measuring 0.5 x 0.2 x 0.4 cm, previously 0.4 x 0.5 x 0.2 cm. . US/Thyroid IMPRESSION: 1. Solid isoechoic nodule in the rib mid thyroid lobe measuring 0.7 x 0.7 x 0.7 cm, previously 0.9 x 0.7 x 0.5 cm. Allowing for technical differences in interobserver differences, this is most likely unchanged. This nodule is solid or almost completely solid, hyperechoic or isoechoic, [id number], smoothly marginated and contains no echogenic foci. This nodule is mildly suspicious but no FNA or follow-up is necessary given the small size of this nodule. 2. Solid slightly hyperechoic nodule in the left lower thyroid lobe measures 1.3 x 1.1 x 1.2 cm, previously 1.4 x 1.1 x 1.4 cm. Allowing for technical differences and interobserver differences, this is most likely unchanged. This nodule is solid or almost completely solid, hyperechoic or isoechoic, [id number], smoothly marginated and contains no echogenic foci. This nodule is moderately suspicious. Recommend follow-up thyroid ultrasounds at 1, 2 and 4 years. 3. Solid elliptical hypoechoic nodule in the thyroid isthmus is unchanged. This nodule is solid or almost completely solid, hypoechoic, [id number], smoothly marginated and contains no echogenic foci. This nodule is moderately suspicious but no FNA or follow-up is necessary given the small size of this nodule. Electronically Signed: Antonio Suarez MD at 15:07 EDT ,
== END | disposition home or self-care (01) ==
LOC: US 12:47
PROVIDERS: PCP Family Medicine; Referring Provider Surgery; Visit Provider Surgery
DX: E04.2 Nontoxic multinodular goiter (principal)
CPT/HCPCS: 76536

== ENCOUNTER → 2023-08-04 | Outpatient (CLI) | payer MEDICAID, SELFPAY ==
[2023-08-04 11:06] LABS: T4 Free Direct 0.94 ng/dL (0.76-1.46); Thyroid Stim Hormone (TSH) 2.66 uIU/mL (0.358-3.74)
== END | disposition home or self-care (01) ==
LOC: PAVLAB 10:24
PROVIDERS: Surgery; PCP Family Medicine; Referring Provider Obstetrics & Gynecology; Visit Provider Obstetrics & Gynecology
DX: E04.1 Nontoxic single thyroid nodule (principal); E01.0 Iodine-deficiency related diffuse (endemic) goiter
CPT/HCPCS: 36415; 84439; 84443

== ENCOUNTER → 2024-06-14 | Outpatient (CLI) | payer MEDICAID, SELFPAY ==
--- NOTE | 2024-06-14 11:47 | US_ITS ---
STUDY: THYROID ULTRASOUND REASON FOR EXAM: Female, 34 years old. Known nodules TECHNIQUE: Ultrasound evaluation of the thyroid was performed with real-time and static kirby-scale imaging. COMPARISON: Prior studies dating back to 2018, the most recent from 06/26/2023 FINDINGS: RIGHT LOBE: The right lobe of the thyroid gland measures 4.9 x 1.8 x 1.8 cm. There is a heterogeneous echotexture. There is a stable well-defined hypoechoic 0.7 x 0.6 x 0.600 nodule. This nodule is solid or almost completely solid, hypoechoic, [id number], smoothly marginated and contains no echogenic foci. This nodule is moderately suspicious but no FNA or follow-up is necessary given the small size of this nodule. LEFT LOBE: The left lobe of the thyroid gland measures 5.2 x 1.5 x 1.6 cm. There is a heterogeneous echotexture. There is a stable hyperechoic 1.4 x 1.1 x 1.3 cm nodule. This nodule is solid or almost completely solid, hyperechoic or isoechoic, [id number], smoothly marginated and contains no echogenic foci. This nodule is moderately suspicious. No further follow-up is necessary given the small size of this nodule and stability over more than 5 years. ISTHMUS: The isthmus measures 3 mm. Stable 1 x 0.8 x 0.2 cm hypoechoic well-defined nodule This nodule is solid or almost completely solid, hypoechoic, [id number], smoothly marginated and contains no echogenic foci. This nodule is moderately suspicious. No further follow-up is necessary given the small size of this nodule and stability over more than 5 years. The regional lymph nodes are normal. US/Thyroid IMPRESSION: Enlarged heterogeneous thyroid gland with stable solid nodules. Follow-up as described above. No interval change dating back to 2018 Electronically Signed: Mahin Tariq MD at 13:26 EDT ,
== END | disposition home or self-care (01) ==
LOC: US 11:45
PROVIDERS: Referring Provider Surgery; Visit Provider Surgery
DX: E04.1 Nontoxic single thyroid nodule (principal)
CPT/HCPCS: 76536